=== PATIENT | male | born 1950 | race Caucasian/White ===

== ENCOUNTER 2021-04-05 16:27 | Inpatient (IN) ==
[2021-04-05] MEDS ORDERED: Perflutren Lipid Microsphere 1.3 ML in 0.9 % Sodium Chloride 8.7 ML IVP PRN (19:36)
[2021-04-05] MEDS ORDERED: Ondansetron 4 MG/2 ML VIAL IVP PRN (19:43)
[2021-04-05] MEDS ORDERED: Naloxone 0.4 MG/ML INJ IVP PRN (19:43)
[2021-04-05 21:15] LABS: VBG HCO3 40 mEq/L (21-27); VBG PCO2 83 mmHg (41-51); VBG PO2 148 mmHg (25-50)
[2021-04-05 21:15] LABS: Calcium 9.4 mg/dL (8.6-10.3); Potassium 4.3 mEq/L (3.5-5.1); Troponin I 0.09 ng/mL (< 0.04)
[2021-04-05] MEDS ORDERED: Ipratropium/Albuterol Neb 3 ML IH PRN (21:37)
[2021-04-05] MEDS ORDERED: *HR* LORazepam 2 MG/ML VIAL IVP PRN (21:38)
[2021-04-05] MEDS ORDERED: Vancomycin 1,500 MG/265 ML IV.SOLN IVPB ONE (23:00)
[2021-04-06 07:10] LABS: Hematocrit 41.7 % (37.5-50.1); Hemoglobin 13.2 g/dL (12.9-16.9); Mean Corpuscular HGB Conc 31.7 g/dL (31.6-35.5); Mean Corpuscular Volume 94.8 fL (83.0-100.0); Mean Platelet Volume 8.8 fL (9.4-12.4); Platelet Count 254 K/mcL (140-400); Red Cell Distribution Width 14.5 % (11.5-14.5); White Blood Count 6.2 K/mcL (4.3-11.1)
[2021-04-06 07:21] LABS: VBG HCO3 41 mEq/L (21-27); VBG PCO2 86 mmHg (41-51); VBG PH 7.28 pH Units (7.32-7.42); VBG PO2 35 mmHg (25-50)
[2021-04-06] MEDS ORDERED: Furosemide 40 MG/4 ML VIAL IVP SCH (09:00)
[2021-04-06 09:16] LABS: Alanine Aminotransferase 17 Units/L (7-52); Albumin 3.3 g/dL (3.5-5.7); Albumin/Globulin Ratio 1.2 (1.1-2.2); Alkaline Phosphatase 33 Units/L (34-104); Aspartate Amino Transferase 25 Units/L (13-39); BUN/Creatinine Ratio 19 (6-26); Bilirubin,Total 0.5 mg/dL (0.3-1.0); Blood Urea Nitrogen 23 mg/dL (8-23); Calcium 9.4 mg/dL (8.6-10.3); Carbon Dioxide 36 mEq/L (23-29); Chloride 88 mEq/L (98-107); Chol/HDL Ratio 2.1 (0-4.9); Cholesterol 150 mg/dL (< 200); Globulin 2.8 g/dL (2.4-3.5); Glucose 109 mg/dL (70-105); HDL Cholesterol 72 mg/dL (40-59); LDL Cholesterol,Calculated 66 mg/dL (< 100); Osmolality,Calculated 276 (280-300); Sodium 131 mEq/L (136-145); Total Protein 6.1 g/dL (6.4-8.9); Triglycerides 61 mg/dL (< 150); Troponin I 0.08 ng/mL (< 0.04); eGFR For African Americans > 60 (> 60); eGFR For Non-African Americans 59 (> 60)
[2021-04-06] MEDS: Aspirin 81 MG TAB.CHEW PO SCH (10:09)
[2021-04-06 11:26] LABS: VBG HCO3 37 mEq/L (21-27); VBG PCO2 71 mmHg (41-51); VBG PH 7.33 pH Units (7.32-7.42); VBG PO2 32 mmHg (25-50)
[2021-04-06 11:34] LABS: INR 1.2; Prothrombin Time 13.8 Seconds (9.4-12.1)
[2021-04-06] MEDS ORDERED: methylPREDNISolone 125 MG/2 ML VIAL IVP ONE (12:15)
[2021-04-06 13:28] LABS: Adenovirus Not Detected (Not Detect); Bordetella Pertussis Not Detected (Not Detect); Chlamydophila pneumoniae Not Detected (Not Detect); Coronavirus 229E Not Detected (Not Detect); Coronavirus HKU1 Not Detected (Not Detect); Coronavirus NL63 Not Detected (Not Detect); Coronavirus OC43 Not Detected (Not Detect); Human Metapneumovirus Not Detected (Not Detect); Human Rhinovirus/Enterovirus Not Detected (Not Detect); Influenza A Subtype 2009 H1 Not Detected (Not Detect); Influenza B Not Detected (Not Detect); Mycoplasma pneumoniae Not Detected (Not Detect); Parainfluenza Virus 1 Not Detected (Not Detect); Parainfluenza Virus 2 Not Detected (Not Detect); Parainfluenza Virus 3 Not Detected (Not Detect); Parainfluenza Virus 4 Not Detected (Not Detect); Respiratory Syncytial Virus Not Detected (Not Detect); SARS-CoV-2 Not Detected (Not Detect)
[2021-04-06] MEDS: Ipratropium/Albuterol Neb 3 ML IH SCH ×4 (15:24→23:41)
[2021-04-06 17:48] LABS: Lactate Dehydrogenase 165 Units/L (140-271); Total Protein 6.4 g/dL (6.4-8.9)
[2021-04-06 17:57] LABS: VBG HCO3 39 mEq/L (21-27); VBG PCO2 84 mmHg (41-51); VBG PH 7.28 pH Units (7.32-7.42); VBG PO2 58 mmHg (25-50)
[2021-04-06 18:22] LABS: RBC,Pleural Fluid 64000 RBC/mcL
[2021-04-06 18:44] LABS: Appearance of Pleural Fl Cloudy (Clear)
[2021-04-06 19:37] LABS: ABG Base Excess 9 mEq/L (-2 to 3); ABG HCO3 37 mEq/L (21-27); ABG Oxygen Saturation 79 % (95-98); ABG PCO2 66 mmHg (35-45); ABG PH 7.36 pH Units (7.32-7.45); ABG PO2 47 mmHg (85-104); ABG TCO2 39 mEq/L (20-26)
[2021-04-06] MEDS: MethylPREDNISolone 40 MG/ML VIAL IVP SCH (19:39)
[2021-04-06 19:43] LABS: Glucose,Pleural Fluid 146 mg/dL (No Ref Range); LDH,Pleural Fluid 61 Units/L (No Ref Range); Total Protein,Pleural Fluid < 2.0 g/dL
[2021-04-06] MEDS ORDERED: Vancomycin 1,250 MG/262.5 ML IV.SOLN IVPB SCH (22:00)
[2021-04-06] MEDS: Vancomycin 1,250 MG/262.5 ML IV.SOLN IVPB SCH (22:30)
[2021-04-06 23:48] LABS: Blood Gas Pressure Support 6 cm H2O; VBG HCO3 41 mEq/L (21-27); VBG PCO2 90 mmHg (41-51); VBG PH 7.26 pH Units (7.32-7.42); VBG PO2 109 mmHg (25-50)
[2021-04-07 02:16] LABS: ABG Base Excess 8 mEq/L (-2 to 3); ABG HCO3 37 mEq/L (21-27); ABG Oxygen Saturation 92 % (95-98); ABG PCO2 76 mmHg (35-45); ABG PO2 74 mmHg (85-104); ABG TCO2 39 mEq/L (20-26); Blood Gas VT 500 cc
[2021-04-07 02:33] LABS: Hematocrit 36.7 % (37.5-50.1); Lymphocytes # 0.1 K/mcL (0.6-4.6); Mean Corpuscular HGB Conc 32.7 g/dL (31.6-35.5); Mean Corpuscular Hemoglobin 30.8 pg (28.0-33.3); Mean Corpuscular Volume 94.1 fL (83.0-100.0); Mean Platelet Volume 9.4 fL (9.4-12.4); Platelet Count 231 K/mcL (140-400); Red Cell Distribution Width 14.3 % (11.5-14.5); White Blood Count 2.8 K/mcL (4.3-11.1)
[2021-04-07 02:52] LABS: Alanine Aminotransferase 14 Units/L (7-52); Albumin 3.1 g/dL (3.5-5.7); Albumin/Globulin Ratio 1.1 (1.1-2.2); Alkaline Phosphatase 27 Units/L (34-104); Aspartate Amino Transferase 21 Units/L (13-39); BUN/Creatinine Ratio 22 (6-26); Bilirubin,Total 0.4 mg/dL (0.3-1.0); Blood Urea Nitrogen 24 mg/dL (8-23); Carbon Dioxide 38 mEq/L (23-29); Chloride 88 mEq/L (98-107); Globulin 2.7 g/dL (2.4-3.5); Glucose 164 mg/dL (70-105); Osmolality,Calculated 278 (280-300); Potassium 3.8 mEq/L (3.5-5.1); Sodium 130 mEq/L (136-145); Total Protein 5.8 g/dL (6.4-8.9); eGFR For African Americans > 60 (> 60); eGFR For Non-African Americans > 60 (> 60)
[2021-04-07 03:02] LABS: Neutrophils # 2.6 K/mcL (1.6-8.9)
[2021-04-07 03:03] LABS: Platelet Estimate Normal (Normal); Toxic Granulation Present (Not Present)
[2021-04-07] MEDS: MethylPREDNISolone 40 MG/ML VIAL IVP SCH ×3 (03:13→21:02)
[2021-04-07] MEDS: Ipratropium/Albuterol Neb 3 ML IH SCH ×6 (03:26→23:23)
[2021-04-07] MEDS: Aspirin 81 MG TAB.CHEW PO SCH (08:49)
[2021-04-07] MEDS: Bumetanide 1 MG/4 ML VIAL IVP SCH ×2 (08:49→18:11)
[2021-04-07] MEDS ORDERED: Vancomycin 1,500 MG/265 ML IV.SOLN IVPB SCH (09:00)
[2021-04-07 09:23] LABS: Blood Gas VT 500 cc; Mixed Venous Blood pCO2 78 mmHg (44-46); Mixed Venous Blood pH 7.32 pH Units (7.34-7.36); Mixed Venous Blood pO2 37 mmHg (35-45)
[2021-04-07 13:10] LABS: ABG Base Excess 12 mEq/L (-2 to 3); ABG HCO3 40 mEq/L (21-27); ABG Oxygen Saturation 93 % (95-98); ABG PCO2 66 mmHg (35-45); ABG PH 7.39 pH Units (7.32-7.45); ABG PO2 71 mmHg (85-104); ABG TCO2 42 mEq/L (20-26); Blood Gas Pressure Support 10 cm H2O
[2021-04-07 15:14] LABS: Hematocrit 36.8 % (37.5-50.1); Hemoglobin 11.8 g/dL (12.9-16.9); Mean Corpuscular HGB Conc 32.1 g/dL (31.6-35.5); Mean Corpuscular Hemoglobin 30.2 pg (28.0-33.3); Mean Corpuscular Volume 94.1 fL (83.0-100.0); Mean Platelet Volume 9.3 fL (9.4-12.4); Platelet Count 220 K/mcL (140-400); Red Blood Count 3.91 M/mcL (4.19-5.50); Red Cell Distribution Width 14.4 % (11.5-14.5)
[2021-04-07 15:17] LABS: White Blood Count 5.2 K/mcL (4.3-11.1)
[2021-04-07] MEDS ORDERED: *HR* Heparin 5,000 UNIT/ML VIAL IVP ONE (16:56)
[2021-04-07] MEDS ORDERED: *HR* Heparin 5,000 UNIT/ML VIAL IVP PRN ×2 (16:56)
[2021-04-07] MEDS ORDERED: carvediloL 6.25 MG TABLET PO SCH (17:00)
[2021-04-07] MEDS: Heparin 25,000UNIT/250ML 1/2NS 25,000 UNIT/250 ML IV.SOLN IVC SCH (18:10)
[2021-04-07 21:16] LABS: Hematocrit 35.5 % (37.5-50.1); Hemoglobin 11.5 g/dL (12.9-16.9); Mean Corpuscular HGB Conc 32.4 g/dL (31.6-35.5); Mean Corpuscular Hemoglobin 30.2 pg (28.0-33.3); Mean Corpuscular Volume 93.2 fL (83.0-100.0); Platelet Count 233 K/mcL (140-400); Red Blood Count 3.81 M/mcL (4.19-5.50); Red Cell Distribution Width 14.3 % (11.5-14.5); White Blood Count 7.7 K/mcL (4.3-11.1)
[2021-04-07 21:23] LABS: Heparin anti-factor XA UFH 0.31 IU/mL (0.30-0.70)
[2021-04-07 21:24] LABS: INR 1.2; Prothrombin Time 13.8 Seconds (9.4-12.1)
[2021-04-07] MEDS: Vancomycin 1,250 MG/262.5 ML IV.SOLN IVPB SCH (22:49)
[2021-04-08 01:38] LABS: Hematocrit 33.5 % (37.5-50.1); Hemoglobin 10.6 g/dL (12.9-16.9); Immature Granulocytes % 0.7 % (0-4); Lymphocytes # 0.2 K/mcL (0.6-4.6); Lymphocytes % 2.4 %; Mean Corpuscular HGB Conc 31.6 g/dL (31.6-35.5); Mean Corpuscular Hemoglobin 29.5 pg (28.0-33.3); Mean Corpuscular Volume 93.3 fL (83.0-100.0); Mean Platelet Volume 9.3 fL (9.4-12.4); Monocytes # 0.2 K/mcL (0.0-1.3); Monocytes % 2.8 %; Neutrophils # 6.4 K/mcL (1.6-8.9); Platelet Count 219 K/mcL (140-400); Red Blood Count 3.59 M/mcL (4.19-5.50); Red Cell Distribution Width 14.3 % (11.5-14.5); Segmented Neutrophils % 94.1 %; White Blood Count 6.8 K/mcL (4.3-11.1)
[2021-04-08 01:58] LABS: Alanine Aminotransferase 17 Units/L (7-52); Albumin/Globulin Ratio 1.3 (1.1-2.2); Alkaline Phosphatase 23 Units/L (34-104); Aspartate Amino Transferase 23 Units/L (13-39); Bilirubin,Total 0.3 mg/dL (0.3-1.0); Blood Urea Nitrogen 30 mg/dL (8-23); Calcium 8.8 mg/dL (8.6-10.3); Carbon Dioxide 39 mEq/L (23-29); Chloride 87 mEq/L (98-107); Globulin 2.4 g/dL (2.4-3.5); Glucose 191 mg/dL (70-105); Osmolality,Calculated 281 (280-300); Potassium 3.9 mEq/L (3.5-5.1); Sodium 130 mEq/L (136-145); Total Protein 5.4 g/dL (6.4-8.9)
[2021-04-08 02:16] LABS: BUN/Creatinine Ratio 24 (6-26); eGFR For African Americans > 60 (> 60); eGFR For Non-African Americans 57 (> 60)
[2021-04-08] MEDS: Ipratropium/Albuterol Neb 3 ML IH SCH ×5 (04:03→20:32)
[2021-04-08] MEDS: MethylPREDNISolone 40 MG/ML VIAL IVP SCH ×3 (04:32→19:46)
[2021-04-08] MEDS ORDERED: Heparin 1,000 UNITS/500 mL 0 ML ONE (09:35)
[2021-04-08] MEDS ORDERED: ISOVUE-370 200 ML INFUS..BTL ONE (09:35)
[2021-04-08] MEDS ORDERED: Nitroglycerin 1,000 MCG/5 ML VIAL IV ONE (09:35)
[2021-04-08] MEDS ORDERED: *HR* Heparin 10,000 UNIT/10 ML VIAL ONE (09:35)
[2021-04-08] MEDS: Bumetanide 1 MG/4 ML VIAL IVP SCH ×2 (10:43→18:21)
[2021-04-08] MEDS: Metoprolol XL (24 HR) Succ 25 MG TAB.ER.24H PO SCH (10:43)
[2021-04-08] MEDS: Aspirin 81 MG TAB.CHEW PO SCH (10:43)
[2021-04-08] MEDS: Heparin 25,000UNIT/250ML 1/2NS 25,000 UNIT/250 ML IV.SOLN IVC SCH (18:22)
[2021-04-08] MEDS: *HR* HYDROcodone/Acet 5/325 mg TABLET PO PRN (19:54)
[2021-04-09] MEDS: Ipratropium/Albuterol Neb 3 ML IH SCH ×6 (00:17→20:38)
[2021-04-09] MEDS: Vancomycin 1,250 MG/262.5 ML IV.SOLN IVPB SCH (02:04)
[2021-04-09] MEDS: MethylPREDNISolone 40 MG/ML VIAL IVP SCH ×3 (04:53→19:34)
[2021-04-09] MEDS: Bumetanide 1 MG/4 ML VIAL IVP SCH ×2 (07:44→16:38)
[2021-04-09] MEDS: Aspirin 81 MG TAB.CHEW PO SCH (07:45)
[2021-04-09] MEDS: Metoprolol XL (24 HR) Succ 25 MG TAB.ER.24H PO SCH (07:45)
[2021-04-09 09:35] LABS: Hematocrit 38.3 % (37.5-50.1); Immature Granulocytes % 0.6 % (0-4); Lymphocytes # 0.3 K/mcL (0.6-4.6); Lymphocytes % 3.8 %; Mean Corpuscular HGB Conc 31.3 g/dL (31.6-35.5); Mean Corpuscular Hemoglobin 29.5 pg (28.0-33.3); Mean Corpuscular Volume 94.1 fL (83.0-100.0); Mean Platelet Volume 9.9 fL (9.4-12.4); Monocytes # 0.2 K/mcL (0.0-1.3); Monocytes % 3.3 %; Neutrophils # 6.1 K/mcL (1.6-8.9); Platelet Count 218 K/mcL (140-400); Red Blood Count 4.07 M/mcL (4.19-5.50); Red Cell Distribution Width 14.4 % (11.5-14.5); Segmented Neutrophils % 92.3 %; White Blood Count 6.6 K/mcL (4.3-11.1)
[2021-04-09 09:59] LABS: Alanine Aminotransferase 29 Units/L (7-52); Albumin 3.4 g/dL (3.5-5.7); Albumin/Globulin Ratio 1.4 (1.1-2.2); Alkaline Phosphatase 21 Units/L (34-104); Aspartate Amino Transferase 48 Units/L (13-39); BUN/Creatinine Ratio 27 (6-26); Bilirubin,Total 0.4 mg/dL (0.3-1.0); Blood Urea Nitrogen 35 mg/dL (8-23); Calcium 9.3 mg/dL (8.6-10.3); Carbon Dioxide 39 mEq/L (23-29); Chloride 85 mEq/L (98-107); Globulin 2.5 g/dL (2.4-3.5); Glucose 135 mg/dL (70-105); Osmolality,Calculated 280 (280-300); Potassium 5.1 mEq/L (3.5-5.1); Sodium 130 mEq/L (136-145); Total Protein 5.9 g/dL (6.4-8.9); eGFR For African Americans > 60 (> 60); eGFR For Non-African Americans 54 (> 60)
[2021-04-09] MEDS: *HR* Heparin 5,000 UNIT/ML VIAL SQ SCH (16:37)
[2021-04-09] MEDS: *HR* HYDROcodone/Acet 5/325 mg TABLET PO PRN (19:44)
[2021-04-10] MEDS: Ipratropium/Albuterol Neb 3 ML IH SCH ×7 (00:07→23:47)
[2021-04-10] MEDS: MethylPREDNISolone 40 MG/ML VIAL IVP SCH ×2 (04:13→12:00)
[2021-04-10] MEDS: *HR* Heparin 5,000 UNIT/ML VIAL SQ SCH ×2 (04:14→17:07)
[2021-04-10] MEDS: *HR* HYDROcodone/Acet 5/325 mg TABLET PO PRN ×4 (04:14→23:58)
[2021-04-10] MEDS: Aspirin 81 MG TAB.CHEW PO SCH (08:12)
[2021-04-10] MEDS: Bumetanide 1 MG/4 ML VIAL IVP SCH ×2 (08:12→17:07)
[2021-04-10] MEDS: Metoprolol XL (24 HR) Succ 25 MG TAB.ER.24H PO SCH (08:12)
[2021-04-10] MEDS: Thiamine (B-1) 100 MG TABLET PO SCH (09:04)
[2021-04-11] MEDS: Ipratropium/Albuterol Neb 3 ML IH SCH ×6 (02:25→23:00)
[2021-04-11] MEDS: *HR* Heparin 5,000 UNIT/ML VIAL SQ SCH ×2 (05:47→17:50)
[2021-04-11] MEDS: Bumetanide 1 MG/4 ML VIAL IVP SCH ×2 (08:37→17:50)
[2021-04-11] MEDS: Metoprolol XL (24 HR) Succ 25 MG TAB.ER.24H PO SCH (08:37)
[2021-04-11] MEDS: Thiamine (B-1) 100 MG TABLET PO SCH (08:37)
[2021-04-11] MEDS: Aspirin 81 MG TAB.CHEW PO SCH (08:37)
[2021-04-11] MEDS: predniSONE 20 MG TABLET PO SCH (08:37)
[2021-04-11] MEDS: *HR* HYDROcodone/Acet 5/325 mg TABLET PO PRN ×2 (09:29→19:57)
[2021-04-11] MEDS ORDERED: Bumetanide 1 MG/4 ML VIAL IVP SCH (12:00)
[2021-04-11 13:40] LABS: BUN/Creatinine Ratio 33 (6-26); Blood Urea Nitrogen 41 mg/dL (8-23); Carbon Dioxide 40 mEq/L (23-29); Chloride 80 mEq/L (98-107); Glucose 164 mg/dL (70-105); Osmolality,Calculated 272 (280-300); Potassium 4.6 mEq/L (3.5-5.1); Sodium 124 mEq/L (136-145); eGFR For African Americans > 60 (> 60); eGFR For Non-African Americans 58 (> 60)
[2021-04-12] MEDS: *HR* HYDROcodone/Acet 5/325 mg TABLET PO PRN ×3 (02:05→19:49)
[2021-04-12] MEDS: Ipratropium/Albuterol Neb 3 ML IH SCH ×5 (03:40→20:12)
[2021-04-12] MEDS: *HR* Heparin 5,000 UNIT/ML VIAL SQ SCH ×2 (05:05→18:33)
[2021-04-12] MEDS: Bumetanide 1 MG/4 ML VIAL IVP SCH ×2 (07:50→18:33)
[2021-04-12] MEDS: predniSONE 20 MG TABLET PO SCH (07:50)
[2021-04-12] MEDS: Metoprolol XL (24 HR) Succ 25 MG TAB.ER.24H PO SCH (07:52)
[2021-04-12] MEDS: Thiamine (B-1) 100 MG TABLET PO SCH (07:52)
[2021-04-12] MEDS: Aspirin 81 MG TAB.CHEW PO SCH (07:52)
[2021-04-12] MEDS: Spironolactone 25 MG TABLET PO SCH (09:35)
[2021-04-12 11:03] LABS: Estimated Average Glucose 117 mg/dl; Hemoglobin A1C 5.7 %
[2021-04-13] MEDS: Ipratropium/Albuterol Neb 3 ML IH SCH ×8 (00:04→20:38)
[2021-04-13] MEDS: *HR* HYDROcodone/Acet 5/325 mg TABLET PO PRN ×2 (01:58→19:48)
[2021-04-13] MEDS: *HR* Heparin 5,000 UNIT/ML VIAL SQ SCH ×2 (05:26→17:19)
[2021-04-13 07:51] LABS: BUN/Creatinine Ratio 36 (6-26); Blood Urea Nitrogen 38 mg/dL (8-23); Calcium 9.5 mg/dL (8.6-10.3); Carbon Dioxide > 40 mEq/L (23-29); Chloride 79 mEq/L (98-107); Glucose 79 mg/dL (70-105); Osmolality,Calculated 276 (280-300); Sodium 129 mEq/L (136-145); eGFR For African Americans > 60 (> 60); eGFR For Non-African Americans > 60 (> 60)
[2021-04-13] MEDS: Bumetanide 1 MG/4 ML VIAL IVP SCH ×2 (08:43→17:19)
[2021-04-13] MEDS: Metoprolol XL (24 HR) Succ 25 MG TAB.ER.24H PO SCH (08:44)
[2021-04-13] MEDS: Thiamine (B-1) 100 MG TABLET PO SCH (08:44)
[2021-04-13] MEDS: predniSONE 20 MG TABLET PO SCH (08:44)
[2021-04-13] MEDS: Spironolactone 25 MG TABLET PO SCH (08:44)
[2021-04-13] MEDS: Aspirin 81 MG TAB.CHEW PO SCH (08:44)
[2021-04-14] MEDS: Ipratropium/Albuterol Neb 3 ML IH SCH ×6 (00:05→19:35)
[2021-04-14 01:41] LABS: Eosinophils # 0.5 K/mcL (0.0-0.6); Eosinophils % 6.8 %; Hematocrit 32.8 % (37.5-50.1); Hemoglobin 10.7 g/dL (12.9-16.9); Immature Granulocytes % 0.4 % (0-4); Lymphocytes # 0.6 K/mcL (0.6-4.6); Lymphocytes % 7.5 %; Mean Corpuscular HGB Conc 32.6 g/dL (31.6-35.5); Mean Corpuscular Hemoglobin 30.1 pg (28.0-33.3); Mean Corpuscular Volume 92.1 fL (83.0-100.0); Mean Platelet Volume 10.5 fL (9.4-12.4); Monocytes # 0.5 K/mcL (0.0-1.3); Monocytes % 6.1 %; Platelet Count 177 K/mcL (140-400); Red Blood Count 3.56 M/mcL (4.19-5.50); Red Cell Distribution Width 14.2 % (11.5-14.5); Segmented Neutrophils % 79.2 %; White Blood Count 7.5 K/mcL (4.3-11.1)
[2021-04-14 01:57] LABS: BUN/Creatinine Ratio 37 (6-26); Blood Urea Nitrogen 40 mg/dL (8-23); Calcium 8.7 mg/dL (8.6-10.3); Carbon Dioxide 44 mEq/L (23-29); Chloride 83 mEq/L (98-107); Glucose 130 mg/dL (70-105); Osmolality,Calculated 282 (280-300); Potassium 4.1 mEq/L (3.5-5.1); Sodium 130 mEq/L (136-145); eGFR For African Americans > 60 (> 60); eGFR For Non-African Americans > 60 (> 60)
[2021-04-14] MEDS ORDERED: *HR* Metoprolol 5 MG/5 ML VIAL IVP ONE (04:59)
[2021-04-14] MEDS: *HR* Heparin 5,000 UNIT/ML VIAL SQ SCH (05:10)
[2021-04-14] MEDS: Bumetanide 1 MG/4 ML VIAL IVP SCH ×2 (08:17→17:32)
[2021-04-14] MEDS: Aspirin 81 MG TAB.CHEW PO SCH (08:17)
[2021-04-14] MEDS: Spironolactone 25 MG TABLET PO SCH (08:17)
[2021-04-14] MEDS: predniSONE 20 MG TABLET PO SCH (08:17)
[2021-04-14] MEDS: Metoprolol XL (24 HR) Succ 25 MG TAB.ER.24H PO SCH (08:17)
[2021-04-14] MEDS: Thiamine (B-1) 100 MG TABLET PO SCH (08:17)
[2021-04-14] MEDS: *HR* HYDROcodone/Acet 5/325 mg TABLET PO PRN ×2 (08:19→20:57)
[2021-04-14] MEDS ORDERED: *HR* Heparin 5,000 UNIT/ML VIAL IVP PRN ×2 (10:44)
[2021-04-14] MEDS ORDERED: *HR* Heparin 5,000 UNIT/ML VIAL IVP ONE (10:44)
[2021-04-14 12:20] LABS: Hematocrit 38.1 % (37.5-50.1); Hemoglobin 12.1 g/dL (12.9-16.9); Mean Corpuscular HGB Conc 31.8 g/dL (31.6-35.5); Mean Corpuscular Volume 94.5 fL (83.0-100.0); Mean Platelet Volume 10.6 fL (9.4-12.4); Platelet Count 198 K/mcL (140-400); Red Blood Count 4.03 M/mcL (4.19-5.50); Red Cell Distribution Width 14.5 % (11.5-14.5); White Blood Count 9.9 K/mcL (4.3-11.1)
[2021-04-14] MEDS: Heparin 25,000UNIT/250ML 1/2NS 25,000 UNIT/250 ML IV.SOLN IVC SCH (12:50)
[2021-04-14] MEDS: *HR* Digoxin 0.5 MG/2 ML AMPUL IVP SCH ×3 (12:50→23:39)
[2021-04-14 12:54] LABS: Heparin anti-factor XA UFH < 0.04 IU/mL (0.30-0.70)
[2021-04-14 12:55] LABS: INR 1.1; Prothrombin Time 12.5 Seconds (9.4-12.1)
[2021-04-14] MEDS: Albumin 25% 25gram/100mL 25 GM/100 ML IV.SOLN IVPB SCH ×2 (15:51→23:42)
[2021-04-15] MEDS: Ipratropium/Albuterol Neb 3 ML IH SCH (00:05)
[2021-04-15] MEDS: Levalbuterol Neb 1.25 MG/3 ML IH SCH ×4 (03:30→20:13)
[2021-04-15] MEDS: *HR* Digoxin 0.5 MG/2 ML AMPUL IVP SCH (05:52)
[2021-04-15] MEDS: *HR* HYDROcodone/Acet 5/325 mg TABLET PO PRN ×2 (05:54→20:01)
[2021-04-15] MEDS: Metoprolol XL (24 HR) Succ 25 MG TAB.ER.24H PO SCH ×2 (09:01→19:57)
[2021-04-15] MEDS: Aspirin 81 MG TAB.CHEW PO SCH (09:01)
[2021-04-15] MEDS: Spironolactone 25 MG TABLET PO SCH (09:01)
[2021-04-15] MEDS: predniSONE 20 MG TABLET PO SCH (09:01)
[2021-04-15] MEDS: Thiamine (B-1) 100 MG TABLET PO SCH (09:01)
[2021-04-15] MEDS: Bumetanide 1 MG/4 ML VIAL IVP SCH ×2 (09:02→17:26)
[2021-04-15] MEDS: Albumin 25% 25gram/100mL 25 GM/100 ML IV.SOLN IVPB SCH (09:02)
[2021-04-15] MEDS: Heparin 25,000UNIT/250ML 1/2NS 25,000 UNIT/250 ML IV.SOLN IVC SCH (11:38)
[2021-04-15] MEDS: *HR* Digoxin 0.125 MG TABLET PO SCH (12:26)
[2021-04-16] MEDS: Levalbuterol Neb 1.25 MG/3 ML IH SCH ×2 (03:37→07:32)
[2021-04-16 06:19] LABS: Eosinophils # 0.5 K/mcL (0.0-0.6); Eosinophils % 7.7 %; Hematocrit 31.7 % (37.5-50.1); Hemoglobin 10.1 g/dL (12.9-16.9); Immature Granulocytes % 0.6 % (0-4); Lymphocytes # 0.7 K/mcL (0.6-4.6); Lymphocytes % 10.4 %; Mean Corpuscular HGB Conc 31.9 g/dL (31.6-35.5); Mean Corpuscular Hemoglobin 29.6 pg (28.0-33.3); Mean Platelet Volume 10.6 fL (9.4-12.4); Monocytes # 0.6 K/mcL (0.0-1.3); Monocytes % 8.5 %; Neutrophils # 4.9 K/mcL (1.6-8.9); Platelet Count 205 K/mcL (140-400); Red Blood Count 3.41 M/mcL (4.19-5.50); Red Cell Distribution Width 14.4 % (11.5-14.5); Segmented Neutrophils % 72.8 %; White Blood Count 6.7 K/mcL (4.3-11.1)
[2021-04-16 06:42] LABS: BUN/Creatinine Ratio 32 (6-26); Blood Urea Nitrogen 39 mg/dL (8-23); Calcium 9.4 mg/dL (8.6-10.3); Carbon Dioxide 40 mEq/L (23-29); Chloride 87 mEq/L (98-107); Glucose 112 mg/dL (70-105); Osmolality,Calculated 282 (280-300); Potassium 4.6 mEq/L (3.5-5.1); Sodium 131 mEq/L (136-145); eGFR For African Americans > 60 (> 60); eGFR For Non-African Americans 58 (> 60)
[2021-04-16 07:01] LABS: Triiodothyronine (T3) Free 2.32 pg/mL (2.50-3.90)
[2021-04-16] MEDS: Thiamine (B-1) 100 MG TABLET PO SCH (09:09)
[2021-04-16] MEDS: *HR* HYDROcodone/Acet 5/325 mg TABLET PO PRN ×3 (09:10→22:05)
[2021-04-16] MEDS: Bumetanide 1 MG/4 ML VIAL IVP SCH ×2 (09:10→15:53)
[2021-04-16] MEDS: Metoprolol XL (24 HR) Succ 25 MG TAB.ER.24H PO SCH ×2 (09:10→19:47)
[2021-04-16] MEDS: Aspirin 81 MG TAB.CHEW PO SCH (09:10)
[2021-04-16] MEDS: *HR* Digoxin 0.125 MG TABLET PO SCH (09:10)
[2021-04-16] MEDS: Spironolactone 25 MG TABLET PO SCH (09:10)
[2021-04-16] MEDS: Heparin 25,000UNIT/250ML 1/2NS 25,000 UNIT/250 ML IV.SOLN IVC SCH (09:57)
[2021-04-16] MEDS ORDERED: Levalbuterol Neb 1.25 MG/3 ML IH PRN (15:28)
[2021-04-17] MEDS: Levothyroxine 25 MCG TABLET PO SCH (05:23)
[2021-04-17] MEDS: *HR* HYDROcodone/Acet 5/325 mg TABLET PO PRN ×2 (08:19→17:10)
[2021-04-17] MEDS: *HR* Digoxin 0.125 MG TABLET PO SCH (08:19)
[2021-04-17] MEDS: Aspirin 81 MG TAB.CHEW PO SCH (08:19)
[2021-04-17] MEDS: Spironolactone 25 MG TABLET PO SCH (08:19)
[2021-04-17] MEDS: Thiamine (B-1) 100 MG TABLET PO SCH (08:19)
[2021-04-17] MEDS: Bumetanide 1 MG/4 ML VIAL IVP SCH ×3 (08:20→17:58)
[2021-04-17] MEDS: Metoprolol XL (24 HR) Succ 25 MG TAB.ER.24H PO SCH ×2 (08:20→21:13)
[2021-04-17] MEDS: Heparin 25,000UNIT/250ML 1/2NS 25,000 UNIT/250 ML IV.SOLN IVC SCH (09:34)
[2021-04-17] MEDS ORDERED: Nitroglycerin 1,000 MCG/5 ML VIAL IV ONE (14:10)
[2021-04-17] MEDS ORDERED: 0.9 % Sodium Chloride 1,000 ML ONE ×2 (14:10→14:23)
[2021-04-17] MEDS ORDERED: *HR* Heparin 10,000 UNIT/10 ML VIAL ONE ×2 (14:10→15:02)
[2021-04-17] MEDS ORDERED: ISOVUE-370 200 ML INFUS..BTL ONE ×2 (14:10→15:51)
[2021-04-17] MEDS ORDERED: Heparin 1,000 UNITS/500 mL 500 ML ONE (14:10)
[2021-04-17] MEDS ORDERED: *HR* FentaNYL (PF) 100 MCG/2 ML VIAL ONE (14:22)
[2021-04-17] MEDS ORDERED: *HR* Midazolam HCl 2 MG/2 ML VIAL ONE (14:22)
[2021-04-17] MEDS ORDERED: Tirofiban 12.5 MG/250ML 12.5 MG/250 ML BAG ONE (15:53)
[2021-04-17] MEDS ORDERED: Acetaminophen 325 MG TABLET PO PRN (16:29)
[2021-04-18] MEDS: *HR* HYDROcodone/Acet 5/325 mg TABLET PO PRN ×2 (03:46→18:48)
[2021-04-18] MEDS: Levothyroxine 25 MCG TABLET PO SCH (06:04)
[2021-04-18 06:14] LABS: Hematocrit 27.5 % (37.5-50.1)
[2021-04-18 06:15] LABS: Eosinophils # 0.6 K/mcL (0.0-0.6); Eosinophils % 10.2 %; Hematocrit 28.1 % (37.5-50.1); Hemoglobin 9.1 g/dL (12.9-16.9); Immature Granulocytes % 0.5 % (0-4); Lymphocytes # 0.6 K/mcL (0.6-4.6); Lymphocytes % 9.7 %; Mean Corpuscular HGB Conc 32.4 g/dL (31.6-35.5); Mean Corpuscular Volume 92.7 fL (83.0-100.0); Mean Platelet Volume 10.6 fL (9.4-12.4); Monocytes # 0.3 K/mcL (0.0-1.3); Monocytes % 5.2 %; Neutrophils # 4.3 K/mcL (1.6-8.9); Platelet Count 220 K/mcL (140-400); Red Blood Count 3.03 M/mcL (4.19-5.50); Red Cell Distribution Width 14.8 % (11.5-14.5); Segmented Neutrophils % 74.4 %; White Blood Count 5.8 K/mcL (4.3-11.1)
[2021-04-18 07:09] LABS: BUN/Creatinine Ratio 29 (6-26); Blood Urea Nitrogen 35 mg/dL (8-23); Calcium 9.2 mg/dL (8.6-10.3); Carbon Dioxide 35 mEq/L (23-29); Chloride 87 mEq/L (98-107); Glucose 147 mg/dL (70-105); Magnesium 1.6 mg/dL (1.6-2.6); Osmolality,Calculated 279 (280-300); Potassium 4.3 mEq/L (3.5-5.1); Sodium 129 mEq/L (136-145); eGFR For African Americans > 60 (> 60); eGFR For Non-African Americans 59 (> 60)
[2021-04-18] MEDS: Thiamine (B-1) 100 MG TABLET PO SCH (08:47)
[2021-04-18] MEDS: Spironolactone 25 MG TABLET PO SCH (08:47)
[2021-04-18] MEDS: Metoprolol XL (24 HR) Succ 25 MG TAB.ER.24H PO SCH ×2 (08:47→19:53)
[2021-04-18] MEDS: *HR* Digoxin 0.125 MG TABLET PO SCH (08:47)
[2021-04-18] MEDS: Apixaban 5 MG TABLET PO SCH ×2 (08:47→19:53)
[2021-04-18] MEDS: Bumetanide 1 MG/4 ML VIAL IVP SCH ×2 (09:14→18:47)
[2021-04-18 16:47] LABS: Basophils % 0.2 %; Eosinophils # 0.5 K/mcL (0.0-0.6); Eosinophils % 9.9 %; Hematocrit 28.6 % (37.5-50.1); Hemoglobin 9.3 g/dL (12.9-16.9); Immature Granulocytes % 0.4 % (0-4); Lymphocytes # 0.4 K/mcL (0.6-4.6); Lymphocytes % 8.3 %; Mean Corpuscular HGB Conc 32.5 g/dL (31.6-35.5); Mean Corpuscular Hemoglobin 30.7 pg (28.0-33.3); Mean Corpuscular Volume 94.4 fL (83.0-100.0); Mean Platelet Volume 10.2 fL (9.4-12.4); Monocytes # 0.3 K/mcL (0.0-1.3); Monocytes % 6.2 %; Platelet Count 219 K/mcL (140-400); Red Blood Count 3.03 M/mcL (4.19-5.50); Red Cell Distribution Width 14.7 % (11.5-14.5); White Blood Count 5.3 K/mcL (4.3-11.1)
[2021-04-18] MEDS: Heparin 25,000UNIT/250ML 1/2NS 25,000 UNIT/250 ML IV.SOLN IVC SCH (19:17)
[2021-04-19] MEDS: Levothyroxine 25 MCG TABLET PO SCH (06:20)
[2021-04-19] MEDS ORDERED: Bumetanide 1 MG TABLET PO SCH (08:00)
[2021-04-19] MEDS: Apixaban 5 MG TABLET PO SCH (08:27)
[2021-04-19] MEDS: Thiamine (B-1) 100 MG TABLET PO SCH (08:27)
[2021-04-19] MEDS: Spironolactone 25 MG TABLET PO SCH (08:27)
[2021-04-19] MEDS: Metoprolol XL (24 HR) Succ 25 MG TAB.ER.24H PO SCH (08:27)
[2021-04-19] MEDS: *HR* Digoxin 0.125 MG TABLET PO SCH (08:30)
[2021-04-19] MEDS ORDERED: *HR* HYDROcodone/Acet 5/325 mg TABLET PO ONE (08:41)
[2021-04-19 10:25] VITALS: BP 130/70; PULSE 75; TEMP 97.6; O2SAT 98
== END 2021-04-19 14:06 | disposition home or self-care (01) | DRG 246 ==
LOC: 3BNU → SUATTDRO 04-06 12:51
PROVIDERS: ADMIT General Practice; ATTEND Internal Medicine

== ENCOUNTER 2021-05-29 14:17 | Inpatient (IN) ==
[2021-05-29] MEDS ORDERED: Ipratropium/Albuterol Neb 3 ML IH PRN (19:06)
[2021-05-29 20:16] LABS: Troponin I 0.04 ng/mL (< 0.04)
[2021-05-29] MEDS: Furosemide 40 MG/4 ML VIAL IVP SCH (21:00)
[2021-05-29 22:33] LABS: Basophils % 0.4 %; Eosinophils % 0.4 %; Hematocrit 30.3 % (37.5-50.1); Hemoglobin 8.9 g/dL (12.9-16.9); Immature Granulocytes % 0.3 % (0-4); Lymphocytes # 0.7 K/mcL (0.6-4.6); Lymphocytes % 8.7 %; Mean Corpuscular HGB Conc 29.4 g/dL (31.6-35.5); Mean Corpuscular Volume 95.3 fL (83.0-100.0); Monocytes # 0.3 K/mcL (0.0-1.3); Monocytes % 4.4 %; Neutrophils # 6.6 K/mcL (1.6-8.9); Platelet Count 276 K/mcL (140-400); Red Blood Count 3.18 M/mcL (4.19-5.50); Segmented Neutrophils % 85.8 %; White Blood Count 7.7 K/mcL (4.3-11.1)
[2021-05-29 22:38] LABS: Alanine Aminotransferase 11 Units/L (7-52); Albumin 3.3 g/dL (3.5-5.7); Alkaline Phosphatase 36 Units/L (34-104); Aspartate Amino Transferase 15 Units/L (13-39); BUN/Creatinine Ratio 17 (6-26); Bilirubin,Total 0.6 mg/dL (0.3-1.0); Blood Urea Nitrogen 18 mg/dL (8-23); Calcium 9.5 mg/dL (8.6-10.3); Carbon Dioxide 39 mEq/L (23-29); Chloride 88 mEq/L (98-107); Globulin 3.4 g/dL (2.4-3.5); Glucose 138 mg/dL (70-105); Osmolality,Calculated 282 (280-300); Phosphorous 4.1 mg/dL (2.7-4.5); Potassium 4.7 mEq/L (3.5-5.1); Sodium 134 mEq/L (136-145); Total Protein 6.7 g/dL (6.4-8.9); eGFR For African Americans > 60 (> 60); eGFR For Non-African Americans > 60 (> 60)
[2021-05-29] MEDS: *HR* HYDROcodone/Acet 7.5/325 mg TABLET PO PRN (23:18)
[2021-05-30 01:30] LABS: Basophils % 0.4 %; Eosinophils # 0.3 K/mcL (0.0-0.6); Eosinophils % 4.3 %; Hematocrit 27.2 % (37.5-50.1); Hemoglobin 8.4 g/dL (12.9-16.9); Immature Granulocytes % 0.3 % (0-4); Lymphocytes # 1.3 K/mcL (0.6-4.6); Lymphocytes % 18.5 %; Mean Corpuscular HGB Conc 30.9 g/dL (31.6-35.5); Mean Corpuscular Hemoglobin 29.2 pg (28.0-33.3); Mean Corpuscular Volume 94.4 fL (83.0-100.0); Mean Platelet Volume 9.7 fL (9.4-12.4); Monocytes # 0.6 K/mcL (0.0-1.3); Monocytes % 8.7 %; Neutrophils # 4.9 K/mcL (1.6-8.9); Platelet Count 275 K/mcL (140-400); Red Blood Count 2.88 M/mcL (4.19-5.50); Segmented Neutrophils % 67.8 %; White Blood Count 7.2 K/mcL (4.3-11.1)
[2021-05-30 01:36] LABS: INR 1.3; Prothrombin Time 14.8 Seconds (9.4-12.1)
[2021-05-30 01:54] LABS: Alanine Aminotransferase 11 Units/L (7-52); Albumin 3.1 g/dL (3.5-5.7); Albumin/Globulin Ratio 0.9 (1.1-2.2); Alkaline Phosphatase 31 Units/L (34-104); Aspartate Amino Transferase 14 Units/L (13-39); BUN/Creatinine Ratio 17 (6-26); Bilirubin,Total 0.5 mg/dL (0.3-1.0); Blood Urea Nitrogen 18 mg/dL (8-23); Calcium 9.3 mg/dL (8.6-10.3); Carbon Dioxide 45 mEq/L (23-29); Chloride 89 mEq/L (98-107); Globulin 3.3 g/dL (2.4-3.5); Glucose 138 mg/dL (70-105); Magnesium 1.9 mg/dL (1.6-2.6); Osmolality,Calculated 286 (280-300); Potassium 4.4 mEq/L (3.5-5.1); Sodium 136 mEq/L (136-145); Total Protein 6.4 g/dL (6.4-8.9); eGFR For African Americans > 60 (> 60); eGFR For Non-African Americans > 60 (> 60)
[2021-05-30] MEDS ORDERED: Albumin 25% 25gram/100mL 25 GM/100 ML IV.SOLN IVPB SCH (08:00)
[2021-05-30] MEDS: Metoprolol XL (24 HR) Succ 50 MG TAB.ER.24H PO SCH (09:28)
[2021-05-30] MEDS: *HR* Digoxin 0.125 MG TABLET PO SCH (09:28)
[2021-05-30] MEDS: Chlorhexidine Rinse 15 ML MOUTHWASH MM SCH ×2 (09:29→19:41)
[2021-05-30] MEDS: Aspirin 81 MG TAB.CHEW PO SCH (09:29)
[2021-05-30] MEDS: Furosemide 40 MG/4 ML VIAL IVP SCH ×2 (10:36→21:25)
[2021-05-30] MEDS: Ipratropium/Albuterol Neb 3 ML IH SCH ×3 (10:48→19:57)
[2021-05-30] MEDS: Budesonide/Formoterol 160/4.5 1 PUFF INH IH SCH ×2 (10:49→19:57)
[2021-05-30] MEDS: *HR* HYDROcodone/Acet 7.5/325 mg TABLET PO PRN (18:41)
[2021-05-30] MEDS: Albumin 25% 25gram/100mL 25 GM/100 ML IV.SOLN IVPB SCH (19:39)
[2021-05-30 20:12] LABS: ABG Base Excess 12 mEq/L (-2 to 3); ABG HCO3 39 mEq/L (21-27); ABG Oxygen Saturation 100 % (95-98); ABG PCO2 74 mmHg (35-45); ABG PH 7.34 pH Units (7.32-7.45); ABG PO2 246 mmHg (85-104); ABG TCO2 42 mEq/L (20-26)
[2021-05-30] MEDS ORDERED: Apixaban 5 MG TABLET PO SCH (21:00)
[2021-05-30] MEDS ORDERED: hydrOXYzine pamoate 25 MG CAPSULE PO ONE (23:41)
[2021-05-31] MEDS: Ipratropium/Albuterol Neb 3 ML IH SCH ×4 (04:19→20:29)
[2021-05-31] MEDS: Albumin 25% 25gram/100mL 25 GM/100 ML IV.SOLN IVPB SCH (05:51)
[2021-05-31 06:42] LABS: Hematocrit 27.2 % (37.5-50.1); Hemoglobin 8.1 g/dL (12.9-16.9); Mean Corpuscular HGB Conc 29.8 g/dL (31.6-35.5); Mean Corpuscular Hemoglobin 28.5 pg (28.0-33.3); Mean Corpuscular Volume 95.8 fL (83.0-100.0); Mean Platelet Volume 9.8 fL (9.4-12.4); Platelet Count 241 K/mcL (140-400); Red Blood Count 2.84 M/mcL (4.19-5.50); White Blood Count 6.6 K/mcL (4.3-11.1)
[2021-05-31 07:20] LABS: % Iron Saturation 9 % (20-55); BUN/Creatinine Ratio 19 (6-26); Blood Urea Nitrogen 25 mg/dL (8-23); Calcium 9.4 mg/dL (8.6-10.3); Carbon Dioxide 43 mEq/L (23-29); Chloride 87 mEq/L (98-107); Ferritin 95 ng/mL (20-250); Glucose 92 mg/dL (70-105); Iron 28 mcg/dL (65-175); Magnesium 1.9 mg/dL (1.6-2.6); Osmolality,Calculated 286 (280-300); Phosphorous 4.3 mg/dL (2.7-4.5); Potassium 4.6 mEq/L (3.5-5.1); Sodium 136 mEq/L (136-145); Transferrin 224 mg/dL (203-362); eGFR For African Americans > 60 (> 60); eGFR For Non-African Americans 55 (> 60)
[2021-05-31 07:26] LABS: Folate 5.6 ng/mL (3.0-16.0)
[2021-05-31] MEDS: Budesonide/Formoterol 160/4.5 1 PUFF INH IH SCH ×2 (07:58→20:30)
[2021-05-31] MEDS: Chlorhexidine Rinse 15 ML MOUTHWASH MM SCH ×2 (08:07→19:49)
[2021-05-31] MEDS: *HR* Digoxin 0.125 MG TABLET PO SCH (08:07)
[2021-05-31] MEDS: Aspirin 81 MG TAB.CHEW PO SCH (08:09)
[2021-05-31] MEDS: Metoprolol XL (24 HR) Succ 50 MG TAB.ER.24H PO SCH (08:09)
[2021-05-31] MEDS: Furosemide 40 MG/4 ML VIAL IVP SCH (08:12)
[2021-05-31 09:00] LABS: VBG HCO3 45 mEq/L (21-27); VBG PCO2 95 mmHg (41-51); VBG PH 7.28 pH Units (7.32-7.42); VBG PO2 87 mmHg (25-50)
[2021-05-31] MEDS ORDERED: Spironolactone 25 MG TABLET PO SCH (09:00)
[2021-05-31] MEDS: Pantoprazole 40 MG in 0.9 % Sodium Chloride Mini Bag 100 ML IVC SCH ×3 (12:18→21:45)
[2021-05-31] MEDS: *HR* HYDROcodone/Acet 7.5/325 mg TABLET PO PRN (12:30)
[2021-05-31] MEDS ORDERED: Dextrose 4 GM Chewable Tablets PO PRN ×2 (12:53)
[2021-05-31] MEDS ORDERED: *HR* Dextrose 50 % in Water (Syg) 50 ML SYRINGE IVP PRN (12:53)
[2021-05-31] MEDS ORDERED: D5% in Water 1,000 ML IVC PRN (12:53)
[2021-05-31] MEDS ORDERED: Saliva Stimulant 44.3ml BOTTLE PO PRN (12:54)
[2021-05-31 13:45] LABS: Hematocrit 26.2 % (37.5-50.1); Hemoglobin 7.7 g/dL (12.9-16.9)
[2021-05-31] MEDS ORDERED: Iron Sucrose Complex 400 MG in 0.9 % Sodium Chloride 250 ML IVPB ONE (14:55)
[2021-05-31] MEDS: Saliva Stimulant 44.3ml BOTTLE PO SCH (19:53)
[2021-05-31] MEDS ORDERED: 0.9 % Sodium Chloride 250 ML ONE (20:00)
[2021-06-01] MEDS: Pantoprazole 40 MG in 0.9 % Sodium Chloride Mini Bag 100 ML IVC SCH ×5 (02:58→19:59)
[2021-06-01] MEDS: Ipratropium/Albuterol Neb 3 ML IH SCH ×4 (03:46→20:09)
[2021-06-01 05:16] LABS: Hematocrit 28.6 % (37.5-50.1); Hemoglobin 8.7 g/dL (12.9-16.9); Mean Corpuscular HGB Conc 30.4 g/dL (31.6-35.5); Mean Corpuscular Hemoglobin 28.4 pg (28.0-33.3); Mean Corpuscular Volume 93.5 fL (83.0-100.0); Mean Platelet Volume 9.8 fL (9.4-12.4); Platelet Count 221 K/mcL (140-400); Red Blood Count 3.06 M/mcL (4.19-5.50); Red Cell Distribution Width 17.6 % (11.5-14.5); White Blood Count 6.8 K/mcL (4.3-11.1)
[2021-06-01 05:24] LABS: INR 1.7; Prothrombin Time 18.9 Seconds (9.4-12.1)
[2021-06-01 05:26] LABS: Activated Partial Thrombo Time 36.4 Seconds (26.0-36.0)
[2021-06-01 05:35] LABS: BUN/Creatinine Ratio 22 (6-26); Blood Urea Nitrogen 25 mg/dL (8-23); Calcium 9.1 mg/dL (8.6-10.3); Carbon Dioxide 44 mEq/L (23-29); Chloride 89 mEq/L (98-107); Glucose 114 mg/dL (70-105); Magnesium 1.9 mg/dL (1.6-2.6); Osmolality,Calculated 283 (280-300); Phosphorous 3.7 mg/dL (2.7-4.5); Potassium 4.4 mEq/L (3.5-5.1); Sodium 134 mEq/L (136-145); eGFR For African Americans > 60 (> 60); eGFR For Non-African Americans > 60 (> 60)
[2021-06-01] MEDS: Albumin 25% 25gram/100mL 25 GM/100 ML IV.SOLN IVPB SCH (06:38)
[2021-06-01] MEDS ORDERED: Simethicone 40 MG/0.6 ML MLS IR ONE ×2 (07:38→14:27)
[2021-06-01] MEDS: Saliva Stimulant 44.3ml BOTTLE PO SCH (07:49)
[2021-06-01] MEDS: Budesonide/Formoterol 160/4.5 1 PUFF INH IH SCH ×2 (08:31→20:09)
[2021-06-01] MEDS ORDERED: Furosemide 40 MG/4 ML VIAL IVP SCH (09:00)
[2021-06-01] MEDS: Nicotine 21 MG PATCH.TD24 TD SCH (09:44)
[2021-06-01] MEDS: Metoprolol XL (24 HR) Succ 50 MG TAB.ER.24H PO SCH (09:44)
[2021-06-01] MEDS: Spironolactone 12.5 MG TABLET PO SCH (09:45)
[2021-06-01] MEDS: Aspirin 81 MG TAB.CHEW PO SCH (09:45)
[2021-06-01] MEDS: Chlorhexidine Rinse 15 ML MOUTHWASH MM SCH (09:45)
[2021-06-01] MEDS: *HR* Digoxin 0.125 MG TABLET PO SCH (09:45)
[2021-06-01] MEDS: *HR* HYDROcodone/Acet 7.5/325 mg TABLET PO PRN ×2 (10:04→23:38)
[2021-06-01] MEDS ORDERED: Lidocaine -MPF 2% 2 ML VIAL ONE (11:32)
[2021-06-01] MEDS ORDERED: Albuterol 2.5 MG/3 ML NEBULIZER ONE (11:45)
[2021-06-01] MEDS ORDERED: Albuterol 2.5 MG/3 ML NEBULIZER IH ONE (11:45)
[2021-06-01] MEDS ORDERED: Tetracaine/Benzocaine/Butamben 1 SPRAY AEROSOL MM ONE (12:06)
[2021-06-01 16:50] LABS: Bilirubin,Urine Negative (Negative); Blood,Urine Negative (Negative); Clarity,Urine Clear (Clear); Color,Urine Light-Yellow (Yellow); Glucose,Urine (UA) Normal (Normal); Ketones,Urine Negative (Negative); Leukocyte Esterase,Urine Negative (Negative); Nitrite,Urine Negative (Negative); Protein,Urine 100 mg/dL (Neg-Trace); Specific Gravity,Urine 1.011 (1.010-1.025); Urobilinogen,Urine Normal (Normal)
[2021-06-01 17:35] LABS: Amorphous Sediment,Urine Few per hpf (None-Few); WBC,Urine 0-3 per hpf (0-3)
[2021-06-02] MEDS: Pantoprazole 40 MG in 0.9 % Sodium Chloride Mini Bag 100 ML IVC SCH ×2 (01:33→06:21)
[2021-06-02 02:24] LABS: Hematocrit 27.3 % (37.5-50.1); Hemoglobin 8.1 g/dL (12.9-16.9); Mean Corpuscular HGB Conc 29.7 g/dL (31.6-35.5); Mean Corpuscular Hemoglobin 28.3 pg (28.0-33.3); Mean Corpuscular Volume 95.5 fL (83.0-100.0); Mean Platelet Volume 10.1 fL (9.4-12.4); Platelet Count 189 K/mcL (140-400); Red Blood Count 2.86 M/mcL (4.19-5.50); Red Cell Distribution Width 17.3 % (11.5-14.5)
[2021-06-02 02:44] LABS: Calcium 9.1 mg/dL (8.6-10.3); Magnesium 1.8 mg/dL (1.6-2.6); Phosphorous 3.7 mg/dL (2.7-4.5); Potassium 5.1 mEq/L (3.5-5.1)
[2021-06-02] MEDS: Ipratropium/Albuterol Neb 3 ML IH SCH ×4 (03:47→20:30)
[2021-06-02] MEDS: Albumin 25% 25gram/100mL 25 GM/100 ML IV.SOLN IVPB SCH (07:13)
[2021-06-02] MEDS: Nicotine 21 MG PATCH.TD24 TD SCH (09:31)
[2021-06-02] MEDS: *HR* Digoxin 0.125 MG TABLET PO SCH (09:32)
[2021-06-02] MEDS: Spironolactone 12.5 MG TABLET PO SCH (09:32)
[2021-06-02] MEDS: Metoprolol XL (24 HR) Succ 50 MG TAB.ER.24H PO SCH (09:34)
[2021-06-02] MEDS: Aspirin 81 MG TAB.CHEW PO SCH (09:34)
[2021-06-02] MEDS: Budesonide/Formoterol 160/4.5 1 PUFF INH IH SCH ×2 (09:57→20:30)
[2021-06-02] MEDS: *HR* HYDROcodone/Acet 7.5/325 mg TABLET PO PRN (16:36)
[2021-06-03] MEDS: Ipratropium/Albuterol Neb 3 ML IH SCH ×4 (04:04→20:24)
[2021-06-03] MEDS: *HR* HYDROcodone/Acet 7.5/325 mg TABLET PO PRN ×3 (04:52→19:45)
[2021-06-03 05:19] LABS: Hematocrit 28.3 % (37.5-50.1); Hemoglobin 8.4 g/dL (12.9-16.9); Mean Corpuscular HGB Conc 29.7 g/dL (31.6-35.5); Mean Corpuscular Hemoglobin 28.4 pg (28.0-33.3); Mean Corpuscular Volume 95.6 fL (83.0-100.0); Mean Platelet Volume 10.1 fL (9.4-12.4); Platelet Count 169 K/mcL (140-400); Red Blood Count 2.96 M/mcL (4.19-5.50); White Blood Count 7.7 K/mcL (4.3-11.1)
[2021-06-03 05:42] LABS: BUN/Creatinine Ratio 28 (6-26); Blood Urea Nitrogen 35 mg/dL (8-23); Calcium 9.5 mg/dL (8.6-10.3); Carbon Dioxide 41 mEq/L (23-29); Chloride 92 mEq/L (98-107); Glucose 104 mg/dL (70-105); Osmolality,Calculated 288 (280-300); Potassium 4.8 mEq/L (3.5-5.1); Sodium 135 mEq/L (136-145); eGFR For African Americans > 60 (> 60); eGFR For Non-African Americans 56 (> 60)
[2021-06-03] MEDS: Nicotine 21 MG PATCH.TD24 TD SCH (08:53)
[2021-06-03] MEDS: *HR* Digoxin 0.125 MG TABLET PO SCH (08:53)
[2021-06-03] MEDS: Metoprolol XL (24 HR) Succ 50 MG TAB.ER.24H PO SCH (08:54)
[2021-06-03] MEDS: Furosemide 40 MG TABLET PO SCH (08:54)
[2021-06-03] MEDS: Aspirin 81 MG TAB.CHEW PO SCH (08:54)
[2021-06-03] MEDS: Spironolactone 12.5 MG TABLET PO SCH (08:54)
[2021-06-03] MEDS: Budesonide/Formoterol 160/4.5 1 PUFF INH IH SCH ×2 (09:19→20:24)
[2021-06-04] MEDS: Ipratropium/Albuterol Neb 3 ML IH SCH ×4 (04:34→20:37)
[2021-06-04] MEDS: Nicotine 21 MG PATCH.TD24 TD SCH (07:28)
[2021-06-04] MEDS: Spironolactone 12.5 MG TABLET PO SCH (07:28)
[2021-06-04] MEDS: *HR* Digoxin 0.125 MG TABLET PO SCH (07:29)
[2021-06-04] MEDS: Metoprolol XL (24 HR) Succ 50 MG TAB.ER.24H PO SCH (07:30)
[2021-06-04] MEDS: Furosemide 40 MG TABLET PO SCH (07:30)
[2021-06-04] MEDS: Aspirin 81 MG TAB.CHEW PO SCH (07:30)
[2021-06-04] MEDS: Budesonide/Formoterol 160/4.5 1 PUFF INH IH SCH ×2 (08:26→20:37)
[2021-06-04] MEDS: *HR* HYDROcodone/Acet 7.5/325 mg TABLET PO PRN (20:39)
[2021-06-05] MEDS: Ipratropium/Albuterol Neb 3 ML IH SCH ×4 (03:44→19:36)
[2021-06-05] MEDS: Budesonide/Formoterol 160/4.5 1 PUFF INH IH SCH ×2 (07:47→19:36)
[2021-06-05] MEDS: Spironolactone 12.5 MG TABLET PO SCH (08:24)
[2021-06-05] MEDS: *HR* Digoxin 0.125 MG TABLET PO SCH (08:24)
[2021-06-05] MEDS: Furosemide 40 MG TABLET PO SCH (08:24)
[2021-06-05] MEDS: Metoprolol XL (24 HR) Succ 50 MG TAB.ER.24H PO SCH (08:24)
[2021-06-05] MEDS: Aspirin 81 MG TAB.CHEW PO SCH (08:25)
[2021-06-05] MEDS: Nicotine 21 MG PATCH.TD24 TD SCH (08:25)
[2021-06-05] MEDS: *HR* HYDROcodone/Acet 7.5/325 mg TABLET PO PRN ×2 (08:34→18:30)
[2021-06-05 16:08] LABS: Adenovirus Not Detected (Not Detect); Bordetella Pertussis Not Detected (Not Detect); Chlamydophila pneumoniae Not Detected (Not Detect); Coronavirus 229E Not Detected (Not Detect); Coronavirus HKU1 Not Detected (Not Detect); Coronavirus NL63 Not Detected (Not Detect); Coronavirus OC43 Not Detected (Not Detect); Human Metapneumovirus Not Detected (Not Detect); Human Rhinovirus/Enterovirus Not Detected (Not Detect); Influenza A Subtype 2009 H1 Not Detected (Not Detect); Influenza B Not Detected (Not Detect); Mycoplasma pneumoniae Not Detected (Not Detect); Parainfluenza Virus 1 Not Detected (Not Detect); Parainfluenza Virus 2 Not Detected (Not Detect); Parainfluenza Virus 3 Not Detected (Not Detect); Parainfluenza Virus 4 Not Detected (Not Detect); Respiratory Syncytial Virus Not Detected (Not Detect); SARS-CoV-2 Not Detected (Not Detect)
[2021-06-05 19:41] VITALS: BP 116/59; PULSE 97; TEMP 97.7; O2SAT 98
== END 2021-06-05 22:30 | DRG 280 ==
LOC: 2NENU → SUATTDRO 17:47
PROVIDERS: ADMIT Internal Medicine; ATTEND Hospitalist

== ENCOUNTER 2021-06-08 06:11 | Inpatient (IN) ==
[2021-06-08] MEDS ORDERED: Furosemide 40 MG/4 ML VIAL IVP ONE (13:28)
[2021-06-08] MEDS ORDERED: Naloxone 0.4 MG/ML INJ IVP PRN (13:33)
[2021-06-08] MEDS ORDERED: Melatonin 3 MG TABLET PO PRN (13:33)
[2021-06-08] MEDS ORDERED: Acetaminophen 325 MG TABLET PO PRN (13:33)
[2021-06-08] MEDS ORDERED: Ondansetron 4 MG/2 ML VIAL IVP PRN (13:33)
[2021-06-08] MEDS ORDERED: Ipratropium/Albuterol Neb 3 ML IH PRN (13:35)
[2021-06-08] MEDS: *HR* HYDROcodone/Acet 7.5/325 mg TABLET PO PRN (16:44)
[2021-06-08] MEDS: Budesonide/Formoterol 160/4.5 1 PUFF INH IH SCH (19:59)
[2021-06-08] MEDS: Furosemide 40 MG/4 ML VIAL IVP SCH (20:44)
[2021-06-09 05:18] LABS: BUN/Creatinine Ratio 26 (6-26); Blood Urea Nitrogen 27 mg/dL (8-23); Calcium 9.8 mg/dL (8.6-10.3); Carbon Dioxide > 45 mEq/L (23-29); Chloride 85 mEq/L (98-107); Glucose 96 mg/dL (70-105); Magnesium 1.9 mg/dL (1.6-2.6); Osmolality,Calculated 289 (280-300); Phosphorous 2.8 mg/dL (2.7-4.5); Potassium 3.5 mEq/L (3.5-5.1); Sodium 137 mEq/L (136-145); Troponin I 0.08 ng/mL (< 0.04); eGFR For African Americans > 60 (> 60); eGFR For Non-African Americans > 60 (> 60)
[2021-06-09] MEDS: *HR* HYDROcodone/Acet 7.5/325 mg TABLET PO PRN ×2 (06:23→21:50)
[2021-06-09] MEDS: Thiamine (B-1) 100 MG TABLET PO SCH (08:17)
[2021-06-09] MEDS: lisinopriL 5 MG TABLET PO SCH (08:17)
[2021-06-09] MEDS: *HR* Digoxin 0.125 MG TABLET PO SCH (08:17)
[2021-06-09] MEDS: Metoprolol XL (24 HR) Succ 50 MG TAB.ER.24H PO SCH (08:17)
[2021-06-09] MEDS: Aspirin 81 MG TAB.CHEW PO SCH (08:18)
[2021-06-09] MEDS: Linaclotide [Linzess] 290 MCG Capsule PO SCH (08:18)
[2021-06-09] MEDS: Spironolactone 25 MG TABLET PO SCH (08:18)
[2021-06-09] MEDS: Budesonide/Formoterol 160/4.5 1 PUFF INH IH SCH ×2 (08:31→19:52)
[2021-06-09] MEDS: Furosemide 40 MG/4 ML VIAL IVP SCH ×2 (11:54→17:38)
[2021-06-10 00:49] LABS: VBG HCO3 48 mEq/L (21-27); VBG PCO2 90 mmHg (41-51); VBG PH 7.34 pH Units (7.32-7.42); VBG PO2 62 mmHg (25-50)
[2021-06-10 00:54] LABS: Hematocrit 29.1 % (37.5-50.1); Hemoglobin 8.9 g/dL (12.9-16.9); Mean Corpuscular HGB Conc 30.6 g/dL (31.6-35.5); Mean Corpuscular Hemoglobin 29.6 pg (28.0-33.3); Mean Corpuscular Volume 96.7 fL (83.0-100.0); Mean Platelet Volume 10.9 fL (9.4-12.4); Platelet Count 158 K/mcL (140-400); Red Blood Count 3.01 M/mcL (4.19-5.50); Red Cell Distribution Width 17.6 % (11.5-14.5); White Blood Count 6.7 K/mcL (4.3-11.1)
[2021-06-10 02:48] LABS: BUN/Creatinine Ratio 27 (6-26); Blood Urea Nitrogen 29 mg/dL (8-23); Calcium 9.4 mg/dL (8.6-10.3); Carbon Dioxide > 45 mEq/L (23-29); Chloride 84 mEq/L (98-107); Glucose 82 mg/dL (70-105); Osmolality,Calculated 283 (280-300); Potassium 4.4 mEq/L (3.5-5.1); Sodium 134 mEq/L (136-145); eGFR For African Americans > 60 (> 60); eGFR For Non-African Americans > 60 (> 60)
[2021-06-10] MEDS: Thiamine (B-1) 100 MG TABLET PO SCH (08:35)
[2021-06-10] MEDS: *HR* Digoxin 0.125 MG TABLET PO SCH (08:35)
[2021-06-10] MEDS: lisinopriL 5 MG TABLET PO SCH (08:35)
[2021-06-10] MEDS: Aspirin 81 MG TAB.CHEW PO SCH (08:35)
[2021-06-10] MEDS: Metoprolol XL (24 HR) Succ 50 MG TAB.ER.24H PO SCH (08:35)
[2021-06-10] MEDS: Linaclotide [Linzess] 290 MCG Capsule PO SCH (08:36)
[2021-06-10] MEDS: Furosemide 40 MG/4 ML VIAL IVP SCH ×2 (08:36→16:35)
[2021-06-10] MEDS: Spironolactone 25 MG TABLET PO SCH (08:36)
[2021-06-10] MEDS: Budesonide/Formoterol 160/4.5 1 PUFF INH IH SCH ×2 (09:07→20:19)
[2021-06-10] MEDS: *HR* HYDROcodone/Acet 7.5/325 mg TABLET PO PRN (16:35)
[2021-06-11] MEDS: *HR* HYDROcodone/Acet 7.5/325 mg TABLET PO PRN ×2 (03:48→21:27)
[2021-06-11 05:39] LABS: VBG HCO3 45 mEq/L (21-27); VBG PCO2 81 mmHg (41-51); VBG PH 7.36 pH Units (7.32-7.42); VBG PO2 130 mmHg (25-50)
[2021-06-11] MEDS: *HR* Enoxaparin 40 MG/0.4 ML SYRINGE SQ SCH (05:53)
[2021-06-11 06:02] LABS: BUN/Creatinine Ratio 20 (6-26); Blood Urea Nitrogen 32 mg/dL (8-23); Calcium 9.1 mg/dL (8.6-10.3); Carbon Dioxide > 45 mEq/L (23-29); Chloride 86 mEq/L (98-107); Glucose 103 mg/dL (70-105); Osmolality,Calculated 285 (280-300); Potassium 4.5 mEq/L (3.5-5.1); Sodium 134 mEq/L (136-145); eGFR For African Americans 52 (> 60); eGFR For Non-African Americans 43 (> 60)
[2021-06-11] MEDS: Spironolactone 25 MG TABLET PO SCH (07:46)
[2021-06-11] MEDS: Furosemide 40 MG/4 ML VIAL IVP SCH (07:46)
[2021-06-11] MEDS: Thiamine (B-1) 100 MG TABLET PO SCH (07:46)
[2021-06-11] MEDS: *HR* Digoxin 0.125 MG TABLET PO SCH (07:47)
[2021-06-11] MEDS: Metoprolol XL (24 HR) Succ 50 MG TAB.ER.24H PO SCH (07:47)
[2021-06-11] MEDS: lisinopriL 5 MG TABLET PO SCH (07:47)
[2021-06-11] MEDS: Aspirin 81 MG TAB.CHEW PO SCH (07:48)
[2021-06-11] MEDS: Linaclotide [Linzess] 290 MCG Capsule PO SCH (07:48)
[2021-06-11] MEDS: Budesonide/Formoterol 160/4.5 1 PUFF INH IH SCH ×2 (10:40→20:45)
[2021-06-12] MEDS: *HR* Enoxaparin 40 MG/0.4 ML SYRINGE SQ SCH (04:52)
[2021-06-12 04:54] LABS: ABG Base Excess 13 mEq/L (-2 to 3); ABG HCO3 40 mEq/L (21-27); ABG Oxygen Saturation 97 % (95-98); ABG PCO2 69 mmHg (35-45); ABG PH 7.37 pH Units (7.32-7.45); ABG PO2 97 mmHg (85-104); ABG TCO2 42 mEq/L (20-26)
[2021-06-12 04:58] LABS: Basophils % 0.3 %; Eosinophils % 17.3 %; Hematocrit 27.5 % (37.5-50.1); Hemoglobin 8.3 g/dL (12.9-16.9); Immature Granulocytes % 0.2 % (0-4); Lymphocytes # 1.7 K/mcL (0.6-4.6); Lymphocytes % 29.4 %; Mean Corpuscular HGB Conc 30.2 g/dL (31.6-35.5); Mean Corpuscular Hemoglobin 28.5 pg (28.0-33.3); Mean Corpuscular Volume 94.5 fL (83.0-100.0); Mean Platelet Volume 11.1 fL (9.4-12.4); Monocytes # 0.4 K/mcL (0.0-1.3); Monocytes % 6.8 %; Neutrophils # 2.7 K/mcL (1.6-8.9); Nucleated Red Blood Cells 0.3 /100 WBC (0); Platelet Count 131 K/mcL (140-400); Red Blood Count 2.91 M/mcL (4.19-5.50); Red Cell Distribution Width 17.3 % (11.5-14.5); White Blood Count 5.9 K/mcL (4.3-11.1)
[2021-06-12] MEDS: *HR* HYDROcodone/Acet 7.5/325 mg TABLET PO PRN (05:02)
[2021-06-12 05:23] LABS: Albumin 3.2 g/dL (3.5-5.7); Albumin/Globulin Ratio 1.4 (1.1-2.2); Bilirubin,Total 0.6 mg/dL (0.3-1.0); Globulin 2.3 g/dL (2.4-3.5); Potassium 4.7 mEq/L (3.5-5.1); Total Protein 5.5 g/dL (6.4-8.9)
[2021-06-12] MEDS: Budesonide/Formoterol 160/4.5 1 PUFF INH IH SCH (07:37)
[2021-06-12] MEDS: Metoprolol XL (24 HR) Succ 50 MG TAB.ER.24H PO SCH (07:47)
[2021-06-12] MEDS: Spironolactone 25 MG TABLET PO SCH (07:48)
[2021-06-12] MEDS: Thiamine (B-1) 100 MG TABLET PO SCH (07:48)
[2021-06-12] MEDS: *HR* Digoxin 0.125 MG TABLET PO SCH (07:48)
[2021-06-12] MEDS: Aspirin 81 MG TAB.CHEW PO SCH (07:48)
[2021-06-12] MEDS ORDERED: Bumetanide 1 MG TABLET PO SCH (08:00)
[2021-06-12 10:40] VITALS: BP 125/60; PULSE 74; TEMP 97.6; O2SAT 95
[2021-06-12 12:21] LABS: Influenza A PCR Negative (Negative); Influenza B PCR Negative (Negative); Resp. Syncytial Virus PCR Negative (Negative)
[2021-06-12 12:22] LABS: SARS-CoV-2 by PCR (In House) Negative (Negative)
== END 2021-06-12 14:25 | DRG 280 ==
LOC: 2NENU → SUATTDRO 06-10 14:50
PROVIDERS: ADMIT Family Medicine; ATTEND Family Medicine

== ENCOUNTER 2021-07-04 21:32 | Inpatient (IN) ==
[2021-07-05] MEDS ORDERED: Ondansetron 4 MG/2 ML VIAL IVP PRN (00:03)
[2021-07-05] MEDS ORDERED: Melatonin 3 MG TABLET PO PRN (00:03)
[2021-07-05] MEDS ORDERED: Naloxone 0.4 MG/ML INJ IVP PRN (00:03)
[2021-07-05 00:42] LABS: ABG Base Excess 5 mEq/L (-2 to 3); ABG HCO3 32 mEq/L (21-27); ABG Oxygen Saturation 99 % (95-98); ABG PCO2 58 mmHg (35-45); ABG PH 7.34 pH Units (7.32-7.45); ABG PO2 154 mmHg (85-104); ABG TCO2 33 mEq/L (20-26)
[2021-07-05 02:28] LABS: Alanine Aminotransferase 1114 Units/L (7-52); Albumin 3.6 g/dL (3.5-5.7); Albumin/Globulin Ratio 1.1 (1.1-2.2); Alkaline Phosphatase 43 Units/L (34-104); Aspartate Amino Transferase 1486 Units/L (13-39); BUN/Creatinine Ratio 25 (6-26); Bilirubin,Direct 1.7 mg/dL (0.0-0.2); Bilirubin,Indirect 0.9 mg/dL (0.0-1.0); Bilirubin,Total 2.6 mg/dL (0.3-1.0); Blood Urea Nitrogen 59 mg/dL (8-23); Calcium 9.1 mg/dL (8.6-10.3); Carbon Dioxide 34 mEq/L (23-29); Chloride 83 mEq/L (98-107); Globulin 3.2 g/dL (2.4-3.5); Glucose 97 mg/dL (70-105); Osmolality,Calculated 280 (280-300); Potassium 4.5 mEq/L (3.5-5.1); Sodium 127 mEq/L (136-145); Total Protein 6.8 g/dL (6.4-8.9); eGFR For African Americans 33 (> 60); eGFR For Non-African Americans 28 (> 60)
[2021-07-05] MEDS: Azithromycin 500 MG in D5% in Water 250 ML IVPB SCH (03:49)
[2021-07-05] MEDS ORDERED: Chloraseptic Spray 177 ML BOTTLE MM PRN (03:58)
[2021-07-05 04:48] LABS: Adenovirus Not Detected (Not Detect); Bordetella Pertussis Not Detected (Not Detect); Chlamydophila pneumoniae Not Detected (Not Detect); Coronavirus 229E Not Detected (Not Detect); Coronavirus HKU1 Not Detected (Not Detect); Coronavirus NL63 Not Detected (Not Detect); Coronavirus OC43 Not Detected (Not Detect); Human Metapneumovirus Not Detected (Not Detect); Human Rhinovirus/Enterovirus Not Detected (Not Detect); Influenza A Subtype 2009 H1 Not Detected (Not Detect); Influenza B Not Detected (Not Detect); Mycoplasma pneumoniae Not Detected (Not Detect); Parainfluenza Virus 1 Not Detected (Not Detect); Parainfluenza Virus 2 Not Detected (Not Detect); Parainfluenza Virus 3 Not Detected (Not Detect); Parainfluenza Virus 4 Not Detected (Not Detect); Respiratory Syncytial Virus Not Detected (Not Detect); SARS-CoV-2 Not Detected (Not Detect)
[2021-07-05] MEDS: *HR* Heparin 5,000 UNIT/ML VIAL SQ SCH ×2 (04:58→17:11)
[2021-07-05 06:28] LABS: Bilirubin,Urine Small (Negative); Blood,Urine Negative (Negative); Clarity,Urine Slightly Cloudy (Clear); Color,Urine Yellow (Yellow); Glucose,Urine (UA) Normal (Normal); Ketones,Urine Negative (Negative); Leukocyte Esterase,Urine Negative (Negative); Nitrite,Urine Negative (Negative); Protein,Urine 100 mg/dL (Neg-Trace); Specific Gravity,Urine >= 1.030 (1.010-1.025); Urobilinogen,Urine Normal (Normal)
[2021-07-05 06:30] LABS: Bacteria,Urine Many per hpf (None-Few); Squamous Epithelial Cell,Urine Few per hpf (None-Few)
[2021-07-05 06:31] LABS: Budding Yeast,Urine Few per hpf (None Seen); Mucus,Urine Few per lpf (None-Few)
[2021-07-05 06:54] LABS: Hematocrit 28.2 % (37.5-50.1); Hemoglobin 8.8 g/dL (12.9-16.9); Lymphocytes # 0.5 K/mcL (0.6-4.6); Mean Corpuscular HGB Conc 31.2 g/dL (31.6-35.5); Mean Corpuscular Hemoglobin 29.4 pg (28.0-33.3); Mean Corpuscular Volume 94.3 fL (83.0-100.0); Mean Platelet Volume 10.9 fL (9.4-12.4); Platelet Count 153 K/mcL (140-400); Red Blood Count 2.99 M/mcL (4.19-5.50); Red Cell Distribution Width 17.4 % (11.5-14.5); White Blood Count 3.6 K/mcL (4.3-11.1)
[2021-07-05 07:02] LABS: Prothrombin Time 21.8 Seconds (9.4-12.1)
[2021-07-05 07:18] LABS: Procalcitonin 6.09 ng/mL (0.00-0.15)
[2021-07-05 07:40] LABS: Acetaminophen < 10 mcg/mL (10-20); Alanine Aminotransferase 1146 Units/L (7-52); Albumin 3.6 g/dL (3.5-5.7); Albumin/Globulin Ratio 1.2 (1.1-2.2); Alkaline Phosphatase 46 Units/L (34-104); Aspartate Amino Transferase 1415 Units/L (13-39); BUN/Creatinine Ratio 27 (6-26); Bilirubin,Direct 1.8 mg/dL (0.0-0.2); Bilirubin,Indirect 0.8 mg/dL (0.0-1.0); Bilirubin,Total 2.6 mg/dL (0.3-1.0); Blood Urea Nitrogen 65 mg/dL (8-23); Carbon Dioxide 34 mEq/L (23-29); Chloride 82 mEq/L (98-107); Globulin 3.1 g/dL (2.4-3.5); Glucose 96 mg/dL (70-105); Osmolality,Calculated 283 (280-300); Potassium 4.8 mEq/L (3.5-5.1); Sodium 127 mEq/L (136-145); Thyroid Stimulating Hormone 1.866 mcIU/mL (0.340-5.600); Total Protein 6.7 g/dL (6.4-8.9); Troponin I 0.26 ng/mL (< 0.04); eGFR For African Americans 32 (> 60); eGFR For Non-African Americans 26 (> 60)
[2021-07-05] MEDS ORDERED: Perflutren Lipid Microsphere 1.3 ML in 0.9 % Sodium Chloride 8.7 ML IVP PRN (07:58)
[2021-07-05] MEDS: Albumin 25% 25gram/100mL 25 GM/100 ML IV.SOLN IVPB SCH ×3 (08:11→22:57)
[2021-07-05 08:18] LABS: Monocytes # 0.1 K/mcL (0.0-1.3)
[2021-07-05 08:19] LABS: Anisocytosis 1+ (Not Present); Hypochromasia Present (Not Present); Poikilocytosis 1+ (Not Present)
[2021-07-05 08:20] LABS: Platelet Estimate Normal (Normal)
[2021-07-05 08:36] LABS: Uric Acid 12.6 mg/dL (2.3-7.6)
[2021-07-05 08:41] LABS: Hepatitis B Surface Antigen Nonreactive (Nonreactive)
[2021-07-05] MEDS ORDERED: Furosemide 40 MG/4 ML VIAL IVP SCH (09:00)
[2021-07-05 09:09] LABS: Hepatitis B Core IgM Nonreactive (Nonreactive); Hepatitis C Virus Antibody Nonreactive (Nonreactive)
[2021-07-05 09:11] LABS: Hepatitis A Antibody IgM Nonreactive (Nonreactive)
[2021-07-05] MEDS: Piperacillin/Tazobactam 3.375 GM in 0.9 % Sodium Chloride Mini Bag 100 ML IVPB SCH ×2 (10:05→18:43)
[2021-07-05] MEDS: Aspirin Enteric Coated 81 MG Tablet PO SCH (10:11)
[2021-07-05 10:13] LABS: Salicylate < 2.5 mg/dL (15.0-30.0)
[2021-07-05] MEDS ORDERED: D5 IVC ONE ×2 (10:15→16:00)
[2021-07-05] MEDS ORDERED: ACETYLCYSTEINE IVC ONE ×2 (10:15→16:00)
[2021-07-05] MEDS ORDERED: WATER IVC ONE ×2 (10:15→16:00)
[2021-07-05] MEDS ORDERED: Acetylcysteine IV 3,600 MG in D5% in Water 500 ML IVC ONE (11:30)
[2021-07-05 15:41] LABS: INR 2.3; Prothrombin Time 25.1 Seconds (9.4-12.1)
[2021-07-05 15:51] LABS: Albumin 3.5 g/dL (3.5-5.7); Albumin/Globulin Ratio 1.2 (1.1-2.2); Bilirubin,Direct 1.7 mg/dL (0.0-0.2); Bilirubin,Indirect 0.8 mg/dL (0.0-1.0); Bilirubin,Total 2.5 mg/dL (0.3-1.0); Calcium 8.6 mg/dL (8.6-10.3); Globulin 2.9 g/dL (2.4-3.5); Potassium 4.6 mEq/L (3.5-5.1); Total Protein 6.4 g/dL (6.4-8.9)
[2021-07-05] MEDS: Bumetanide 1 MG/4 ML VIAL IVP SCH (17:10)
[2021-07-05 17:40] LABS: Protein/Creatinine Ratio,Urine 4.15 mg/mg (0.00-0.20)
[2021-07-05] MEDS: Doxycycline 100 MG in 0.9 % Sodium Chloride Mini Bag 100 ML IVPB SCH (17:44)
[2021-07-05] MEDS ORDERED: cefTRIAXone 1,000 MG in 0.9 % Sodium Chloride 10 ML IVP ONE (20:00)
[2021-07-05] MEDS: Budesonide/Formoterol 160/4.5 1 PUFF INH IH SCH (20:53)
[2021-07-05] MEDS ORDERED: Haloperidol Lactate 5 MG/ML VIAL IVP ONE (22:36)
[2021-07-05] MEDS: Ipratropium/Albuterol Neb 3 ML IH PRN (23:11)
[2021-07-06] MEDS: Piperacillin/Tazobactam 3.375 GM in 0.9 % Sodium Chloride Mini Bag 100 ML IVPB SCH ×4 (00:27→21:21)
[2021-07-06 02:49] LABS: Hematocrit 23.8 % (37.5-50.1); Hemoglobin 7.6 g/dL (12.9-16.9); Mean Corpuscular HGB Conc 31.9 g/dL (31.6-35.5); Mean Corpuscular Hemoglobin 29.3 pg (28.0-33.3); Mean Corpuscular Volume 91.9 fL (83.0-100.0); Mean Platelet Volume 11.9 fL (9.4-12.4); Platelet Count 121 K/mcL (140-400); Red Blood Count 2.59 M/mcL (4.19-5.50); Red Cell Distribution Width 17.2 % (11.5-14.5); White Blood Count 4.1 K/mcL (4.3-11.1)
[2021-07-06] MEDS: Ipratropium/Albuterol Neb 3 ML IH PRN (03:32)
[2021-07-06 03:49] LABS: Albumin 3.9 g/dL (3.5-5.7); Albumin/Globulin Ratio 1.4 (1.1-2.2); Calcium 8.4 mg/dL (8.6-10.3); Globulin 2.7 g/dL (2.4-3.5); Magnesium 1.9 mg/dL (1.6-2.6); Phosphorous 6.4 mg/dL (2.7-4.5); Total Protein 6.6 g/dL (6.4-8.9)
[2021-07-06 03:51] LABS: ABG Base Excess 4 mEq/L (-2 to 3); ABG HCO3 33 mEq/L (21-27); ABG Oxygen Saturation 98 % (95-98); ABG PCO2 78 mmHg (35-45); ABG PH 7.23 pH Units (7.32-7.45); ABG PO2 127 mmHg (85-104); ABG TCO2 35 mEq/L (20-26)
[2021-07-06] MEDS: Azithromycin 500 MG in D5% in Water 250 ML IVPB SCH (04:38)
[2021-07-06 05:14] LABS: Vitamin B12 > 1500 pg/mL (250-1100); Vitamin D 25 Hydroxy 37 ng/mL (30-80)
[2021-07-06] MEDS: *HR* Heparin 5,000 UNIT/ML VIAL SQ SCH ×2 (05:42→18:01)
[2021-07-06] MEDS: Doxycycline 100 MG in 0.9 % Sodium Chloride Mini Bag 100 ML IVPB SCH ×2 (05:42→17:41)
[2021-07-06] MEDS: Budesonide/Formoterol 160/4.5 1 PUFF INH IH SCH ×2 (07:49→20:34)
[2021-07-06] MEDS: *HR* Digoxin 0.125 MG TABLET PO SCH ×2 (07:51→08:22)
[2021-07-06] MEDS: Metoprolol XL (24 HR) Succ 50 MG TAB.ER.24H PO SCH ×2 (07:51→08:23)
[2021-07-06] MEDS: Aspirin Enteric Coated 81 MG Tablet PO SCH ×2 (07:51→08:20)
[2021-07-06] MEDS: Bumetanide 1 MG/4 ML VIAL IVP SCH (08:02)
[2021-07-06] MEDS: Albumin 25% 25gram/100mL 25 GM/100 ML IV.SOLN IVPB SCH ×2 (08:03→17:45)
[2021-07-06] MEDS ORDERED: Haloperidol Lactate 5 MG/ML VIAL IVP PRN (08:29)
[2021-07-06 08:44] LABS: ABG Base Excess 4 mEq/L (-2 to 3); ABG HCO3 32 mEq/L (21-27); ABG Oxygen Saturation 97 % (95-98); ABG PCO2 71 mmHg (35-45); ABG PH 7.27 pH Units (7.32-7.45); ABG PO2 113 mmHg (85-104); ABG TCO2 35 mEq/L (20-26); Blood Gas Modality BiLevel
[2021-07-06] MEDS: Pantoprazole 40 MG VIAL IVP SCH (13:02)
[2021-07-06] MEDS ORDERED: Dextrose 4 GM Chewable Tablets PO PRN ×2 (13:11)
[2021-07-06] MEDS ORDERED: D5% in Water 1,000 ML IVC PRN (13:11)
[2021-07-06] MEDS ORDERED: Acetylcysteine IV 3,600 MG in D5% in Water 500 ML IVC ONE (13:37)
[2021-07-06] MEDS ORDERED: WATER IVC ONE ×2 (13:37→18:00)
[2021-07-06] MEDS ORDERED: ACETYLCYSTEINE IVC ONE ×2 (13:37→18:00)
[2021-07-06] MEDS ORDERED: D5 IVC ONE ×2 (13:37→18:00)
[2021-07-06 14:05] LABS: Hematocrit 23.2 % (37.5-50.1); Hemoglobin 7.5 g/dL (12.9-16.9)
[2021-07-06 14:13] LABS: ABG Base Excess 3 mEq/L (-2 to 3); ABG HCO3 31 mEq/L (21-27); ABG Oxygen Saturation 96 % (95-98); ABG PCO2 77 mmHg (35-45); ABG PH 7.22 pH Units (7.32-7.45); ABG PO2 101 mmHg (85-104); ABG TCO2 34 mEq/L (20-26); Blood Gas VT 500 cc
[2021-07-06 14:13] LABS: Prothrombin Time 22.3 Seconds (9.4-12.1)
[2021-07-06] MEDS ORDERED: MethylPREDNISolone 40 MG/ML VIAL IVP SCH (16:00)
[2021-07-06] MEDS ORDERED: Artificial Tears SOLN 15 ML BOTTLE BOTH EYES PRN (16:11)
[2021-07-06] MEDS: FentaNYL (PF) 1,000 MCG/100 ML IV.SOLN IVC SCH (16:44)
[2021-07-06 17:45] LABS: ABG Base Excess 5 mEq/L (-2 to 3); ABG HCO3 30 mEq/L (21-27); ABG Oxygen Saturation 97 % (95-98); ABG PCO2 50 mmHg (35-45); ABG PH 7.39 pH Units (7.32-7.45); ABG PO2 92 mmHg (85-104); ABG TCO2 32 mEq/L (20-26); Blood Gas Modality ASSIST CONTROL; Blood Gas VT 400 cc
[2021-07-06] MEDS: Insulin LISPRO 300 UNITS/3 ML VIAL SUBQ SCH ×2 (18:01→23:41)
[2021-07-06] MEDS ORDERED: Lidocaine -MPF 2% 5 ML VIAL SQ ONE (18:41)
[2021-07-06] MEDS ORDERED: *HR* Succinylcholine 200 MG/10 ML VIAL IVP ONE (18:41)
[2021-07-06] MEDS ORDERED: *HR* Midazolam HCl 5 MG/5 ML VIAL IVP ONE (18:41)
[2021-07-06] MEDS: Artificial Tears SOLN 15 ML BOTTLE BOTH EYES SCH ×2 (21:14→23:40)
[2021-07-06] MEDS: Chlorhexidine Rinse 15 ML MOUTHWASH MM SCH (21:20)
[2021-07-07] MEDS: Albumin 25% 25gram/100mL 25 GM/100 ML IV.SOLN IVPB SCH ×2 (00:17→07:48)
[2021-07-07] MEDS: FentaNYL (PF) 1,000 MCG/100 ML IV.SOLN IVC SCH ×3 (02:00→21:45)
[2021-07-07 04:15] LABS: VBG Ionized Calcium 0.93 mmol/L (1.15-1.35)
[2021-07-07] MEDS: Artificial Tears SOLN 15 ML BOTTLE BOTH EYES SCH ×6 (04:17→23:46)
[2021-07-07 04:45] LABS: Eosinophils # 0.1 K/mcL (0.0-0.6); Hematocrit 19.5 % (37.5-50.1); Hemoglobin 6.6 g/dL (12.9-16.9); Lymphocytes # 0.6 K/mcL (0.6-4.6); Lymphocytes % 11.5 %; Mean Corpuscular HGB Conc 33.8 g/dL (31.6-35.5); Mean Corpuscular Hemoglobin 29.5 pg (28.0-33.3); Mean Platelet Volume 11.7 fL (9.4-12.4); Monocytes # 0.3 K/mcL (0.0-1.3); Monocytes % 5.7 %; Red Blood Count 2.24 M/mcL (4.19-5.50); Red Cell Distribution Width 17.2 % (11.5-14.5); Segmented Neutrophils % 79.8 %; White Blood Count 5.1 K/mcL (4.3-11.1)
[2021-07-07 04:46] LABS: Mean Corpuscular Volume 87.1 fL (83.0-100.0); Neutrophils # 4.1 K/mcL (1.6-8.9); Platelet Count 99 K/mcL (140-400)
[2021-07-07 04:48] LABS: ABG Base Excess 2 mEq/L (-2 to 3); ABG HCO3 26 mEq/L (21-27); ABG Oxygen Saturation 99 % (95-98); ABG PCO2 40 mmHg (35-45); ABG PH 7.43 pH Units (7.32-7.45); ABG PO2 111 mmHg (85-104); ABG TCO2 28 mEq/L (20-26); Blood Gas Modality ASSIST CONTROL; Blood Gas VT 400 cc
[2021-07-07] MEDS: *HR* Heparin 5,000 UNIT/ML VIAL SQ SCH (04:58)
[2021-07-07] MEDS: Doxycycline 100 MG in 0.9 % Sodium Chloride Mini Bag 100 ML IVPB SCH ×2 (05:00→18:37)
[2021-07-07] MEDS: Insulin LISPRO 300 UNITS/3 ML VIAL SUBQ SCH ×4 (05:05→23:50)
[2021-07-07 05:15] LABS: Calcium 8.8 mg/dL (8.6-10.3); Magnesium 1.8 mg/dL (1.6-2.6); Phosphorous 4.5 mg/dL (2.7-4.5); Potassium 3.9 mEq/L (3.5-5.1)
[2021-07-07] MEDS: *HR* Dextrose 50 % in Water (Syg) 50 ML SYRINGE IVP PRN (05:29)
[2021-07-07] MEDS ORDERED: 0.9 % Sodium Chloride 250 ML IVC SCH (07:00)
[2021-07-07] MEDS: Budesonide/Formoterol 160/4.5 1 PUFF INH IH SCH ×2 (07:24→19:52)
[2021-07-07] MEDS: Aspirin Enteric Coated 81 MG Tablet PO SCH (07:25)
[2021-07-07] MEDS: Metoprolol XL (24 HR) Succ 50 MG TAB.ER.24H PO SCH (07:26)
[2021-07-07] MEDS: Chlorhexidine Rinse 15 ML MOUTHWASH MM SCH ×2 (07:49→20:52)
[2021-07-07] MEDS: Levothyroxine Sodium 100 MCG VIAL IVP SCH (07:49)
[2021-07-07] MEDS: Pantoprazole 40 MG VIAL IVP SCH (07:50)
[2021-07-07] MEDS: Piperacillin/Tazobactam 3.375 GM in 0.9 % Sodium Chloride Mini Bag 100 ML IVPB SCH ×2 (07:50→20:57)
[2021-07-07] MEDS ORDERED: Bumetanide 1 MG/4 ML VIAL IVP SCH (09:00)
[2021-07-07] MEDS ORDERED: Potassium Phosphate 44 MEQ in 0.9 % Sodium Chloride 250 ML IVPB PRN (12:21)
[2021-07-07] MEDS: Calcium Gluconate 1gm/50mL 1 GM/50 ML BAG IVPB PRN (12:45)
[2021-07-07] MEDS: Aspirin 81 MG TAB.CHEW PO SCH (14:05)
[2021-07-07 14:47] LABS: Hematocrit 23.5 % (37.5-50.1); Hemoglobin 7.9 g/dL (12.9-16.9); Mean Corpuscular HGB Conc 33.6 g/dL (31.6-35.5); Mean Corpuscular Hemoglobin 29.5 pg (28.0-33.3); Mean Corpuscular Volume 87.7 fL (83.0-100.0); Mean Platelet Volume 11.3 fL (9.4-12.4); Monocytes # 0.4 K/mcL (0.0-1.3); Nucleated Red Blood Cells 0.3 /100 WBC (0); Platelet Count 102 K/mcL (140-400); Red Blood Count 2.68 M/mcL (4.19-5.50); Red Cell Distribution Width 17.1 % (11.5-14.5); White Blood Count 6.5 K/mcL (4.3-11.1)
[2021-07-07 15:12] LABS: Source of Body Fluid LLL BAL
[2021-07-07 15:21] LABS: Lymphocytes # 0.7 K/mcL (0.6-4.6); Neutrophils # 5.5 K/mcL (1.6-8.9); Platelet Estimate Slight Decrease (Normal)
[2021-07-07 18:43] LABS: VBG Ionized Calcium 1.03 mmol/L (1.15-1.35)
[2021-07-07 19:02] LABS: Magnesium 2.1 mg/dL (1.6-2.6); Potassium 3.7 mEq/L (3.5-5.1)
[2021-07-07 20:26] LABS: Appearance of Body Fluid Cloudy (Clear); Volume of Body Fluid 20 mL
[2021-07-08] MEDS: Artificial Tears SOLN 15 ML BOTTLE BOTH EYES SCH ×6 (03:18→23:52)
[2021-07-08 03:45] LABS: ABG Base Excess 4 mEq/L (-2 to 3); ABG HCO3 30 mEq/L (21-27); ABG Oxygen Saturation 95 % (95-98); ABG PCO2 56 mmHg (35-45); ABG PH 7.34 pH Units (7.32-7.45); ABG PO2 85 mmHg (85-104); ABG TCO2 32 mEq/L (20-26); Blood Gas Modality ASSIST CONTROL; Blood Gas VT 400 cc
[2021-07-08 04:14] LABS: Basophils % 0.3 %; Eosinophils # 0.2 K/mcL (0.0-0.6); Eosinophils % 3.1 %; Hematocrit 24.3 % (37.5-50.1); Hemoglobin 8.2 g/dL (12.9-16.9); Immature Platelets 6.6 % (1.1-6.1); Lymphocytes # 0.7 K/mcL (0.6-4.6); Lymphocytes % 10.7 %; Mean Corpuscular HGB Conc 33.7 g/dL (31.6-35.5); Mean Corpuscular Hemoglobin 29.5 pg (28.0-33.3); Mean Corpuscular Volume 87.4 fL (83.0-100.0); Mean Platelet Volume 11.5 fL (9.4-12.4); Monocytes # 0.4 K/mcL (0.0-1.3); Monocytes % 5.7 %; Neutrophils # 5.4 K/mcL (1.6-8.9); Nucleated Red Blood Cells 0.3 /100 WBC (0); Platelet Count 102 K/mcL (140-400); Red Blood Count 2.78 M/mcL (4.19-5.50); Red Cell Distribution Width 17.2 % (11.5-14.5); Segmented Neutrophils % 79.2 %; White Blood Count 6.8 K/mcL (4.3-11.1)
[2021-07-08 04:32] LABS: Calcium 9.3 mg/dL (8.6-10.3); Magnesium 2.2 mg/dL (1.6-2.6); Potassium 3.8 mEq/L (3.5-5.1)
[2021-07-08] MEDS ORDERED: Potassium Chloride Elixir 20 MEQ/15 ML UDC GTUBE ONE (05:21)
[2021-07-08] MEDS: Insulin LISPRO 300 UNITS/3 ML VIAL SUBQ SCH ×4 (05:34→23:53)
[2021-07-08] MEDS: Doxycycline 100 MG in 0.9 % Sodium Chloride Mini Bag 100 ML IVPB SCH ×2 (05:35→17:30)
[2021-07-08 05:43] LABS: VBG Ionized Calcium 1.02 mmol/L (1.15-1.35)
[2021-07-08] MEDS: Calcium Gluconate 1gm/50mL 1 GM/50 ML BAG IVPB PRN (06:20)
[2021-07-08] MEDS: Chlorhexidine Rinse 15 ML MOUTHWASH MM SCH ×2 (07:29→21:36)
[2021-07-08] MEDS: Piperacillin/Tazobactam 3.375 GM in 0.9 % Sodium Chloride Mini Bag 100 ML IVPB SCH ×2 (07:29→21:39)
[2021-07-08] MEDS: Pantoprazole 40 MG VIAL IVP SCH (07:30)
[2021-07-08] MEDS: Levothyroxine Sodium 100 MCG VIAL IVP SCH (07:30)
[2021-07-08] MEDS: Aspirin 81 MG TAB.CHEW PO SCH (07:31)
[2021-07-08] MEDS: Budesonide/Formoterol 160/4.5 1 PUFF INH IH SCH ×2 (07:38→19:52)
[2021-07-08 09:32] LABS: INR 1.6; Prothrombin Time 17.7 Seconds (9.4-12.1)
[2021-07-08 09:34] LABS: Albumin 3.4 g/dL (3.5-5.7); Albumin/Globulin Ratio 1.5 (1.1-2.2); Globulin 2.3 g/dL (2.4-3.5); Total Protein 5.7 g/dL (6.4-8.9)
[2021-07-08 09:35] LABS: Activated Partial Thrombo Time 29.4 Seconds (26.0-36.0)
[2021-07-08] MEDS: FentaNYL (PF) 1,000 MCG/100 ML IV.SOLN IVC SCH (11:02)
[2021-07-08] MEDS ORDERED: *HR* Heparin 5,000 UNIT/ML VIAL ONE (11:17)
[2021-07-08] MEDS ORDERED: *HR* Heparin 10,000 UNIT/10 ML VIAL IV PRN (11:31)
[2021-07-08] MEDS ORDERED: 0.9 % Sodium Chloride 250 ML IVC PRN (11:31)
[2021-07-08] MEDS ORDERED: 0.9 % Sodium Chloride 1,000 ML PRIME SCH (11:45)
[2021-07-08 12:36] LABS: VBG Ionized Calcium 1.11 mmol/L (1.15-1.35)
[2021-07-08 13:05] LABS: Calcium 9.5 mg/dL (8.6-10.3); Potassium 4.3 mEq/L (3.5-5.1)
[2021-07-08] MEDS: Norepinephrine 4 MG/254 ML IV.SOLN IVC SCH (14:08)
[2021-07-09] MEDS: FentaNYL (PF) 1,000 MCG/100 ML IV.SOLN IVC SCH ×2 (00:45→17:45)
[2021-07-09] MEDS: Artificial Tears SOLN 15 ML BOTTLE BOTH EYES SCH ×5 (03:47→20:31)
[2021-07-09 04:16] LABS: VBG Ionized Calcium 1.21 mmol/L (1.15-1.35)
[2021-07-09 04:36] LABS: Basophils % 0.1 %; Eosinophils # 0.2 K/mcL (0.0-0.6); Eosinophils % 3.2 %; Hematocrit 24.1 % (37.5-50.1); Hemoglobin 7.9 g/dL (12.9-16.9); Immature Granulocytes % 1.9 % (0-4); Lymphocytes # 0.7 K/mcL (0.6-4.6); Lymphocytes % 10.3 %; Mean Corpuscular HGB Conc 32.8 g/dL (31.6-35.5); Mean Corpuscular Volume 88.6 fL (83.0-100.0); Mean Platelet Volume 11.6 fL (9.4-12.4); Monocytes # 0.3 K/mcL (0.0-1.3); Monocytes % 4.6 %; Neutrophils # 5.4 K/mcL (1.6-8.9); Platelet Count 101 K/mcL (140-400); Red Blood Count 2.72 M/mcL (4.19-5.50); Red Cell Distribution Width 17.9 % (11.5-14.5); Segmented Neutrophils % 79.9 %; White Blood Count 6.8 K/mcL (4.3-11.1)
[2021-07-09 04:44] LABS: INR 1.5
[2021-07-09 04:56] LABS: Albumin 3.1 g/dL (3.5-5.7); Albumin/Globulin Ratio 1.1 (1.1-2.2); Bilirubin,Direct 2.6 mg/dL (0.0-0.2); Bilirubin,Indirect 0.9 mg/dL (0.0-1.0); Bilirubin,Total 3.5 mg/dL (0.3-1.0); Calcium 9.5 mg/dL (8.6-10.3); Globulin 2.7 g/dL (2.4-3.5); Magnesium 2.1 mg/dL (1.6-2.6); Phosphorous 4.2 mg/dL (2.7-4.5); Potassium 4.3 mEq/L (3.5-5.1); Total Protein 5.8 g/dL (6.4-8.9)
[2021-07-09 05:04] LABS: ABG Base Excess 3 mEq/L (-2 to 3); ABG HCO3 31 mEq/L (21-27); ABG Oxygen Saturation 98 % (95-98); ABG PCO2 61 mmHg (35-45); ABG PH 7.32 pH Units (7.32-7.45); ABG PO2 110 mmHg (85-104); ABG TCO2 33 mEq/L (20-26); Blood Gas Modality ASSIST CONTROL; Blood Gas VT 400 cc
[2021-07-09] MEDS: Doxycycline 100 MG in 0.9 % Sodium Chloride Mini Bag 100 ML IVPB SCH ×2 (05:53→17:45)
[2021-07-09] MEDS: Insulin LISPRO 300 UNITS/3 ML VIAL SUBQ SCH ×3 (05:53→17:45)
[2021-07-09] MEDS: Budesonide/Formoterol 160/4.5 1 PUFF INH IH SCH ×2 (07:34→20:09)
[2021-07-09] MEDS: Chlorhexidine Rinse 15 ML MOUTHWASH MM SCH ×2 (08:35→20:31)
[2021-07-09] MEDS: Norepinephrine 4 MG/254 ML IV.SOLN IVC SCH (08:35)
[2021-07-09] MEDS: Piperacillin/Tazobactam 3.375 GM in 0.9 % Sodium Chloride Mini Bag 100 ML IVPB SCH ×2 (08:36→20:31)
[2021-07-09] MEDS: Levothyroxine Sodium 100 MCG VIAL IVP SCH (08:36)
[2021-07-09] MEDS: Pantoprazole 40 MG VIAL IVP SCH (08:36)
[2021-07-09] MEDS: Aspirin 81 MG TAB.CHEW PO SCH (08:37)
[2021-07-09] MEDS ORDERED: *HR* Heparin 10,000 UNIT/10 ML VIAL IV PRN (10:54)
[2021-07-09] MEDS ORDERED: 0.9 % Sodium Chloride 250 ML IVC PRN (10:54)
[2021-07-10] MEDS: Artificial Tears SOLN 15 ML BOTTLE BOTH EYES SCH ×7 (00:51→23:34)
[2021-07-10] MEDS: Insulin LISPRO 300 UNITS/3 ML VIAL SUBQ SCH ×5 (02:24→23:38)
[2021-07-10 03:46] LABS: Basophils % 0.3 %; Hemoglobin 7.8 g/dL (12.9-16.9)
[2021-07-10 03:48] LABS: Eosinophils # 0.4 K/mcL (0.0-0.6); Eosinophils % 5.2 %; Hematocrit 24.5 % (37.5-50.1); Immature Granulocytes % 1.8 % (0-4); Immature Platelets 7.5 % (1.1-6.1); Lymphocytes % 14.6 %; Mean Corpuscular HGB Conc 31.8 g/dL (31.6-35.5); Mean Corpuscular Volume 91.1 fL (83.0-100.0); Monocytes # 0.4 K/mcL (0.0-1.3); Monocytes % 5.4 %; Neutrophils # 4.9 K/mcL (1.6-8.9); Red Blood Count 2.69 M/mcL (4.19-5.50); Red Cell Distribution Width 18.2 % (11.5-14.5); Segmented Neutrophils % 72.7 %; White Blood Count 6.7 K/mcL (4.3-11.1)
[2021-07-10 03:48] LABS: VBG Ionized Calcium 1.25 mmol/L (1.15-1.35)
[2021-07-10 03:56] LABS: Platelet Count 84 K/mcL (140-400)
[2021-07-10 03:58] LABS: INR 1.6; Prothrombin Time 17.4 Seconds (9.4-12.1)
[2021-07-10 04:07] LABS: Albumin 3.1 g/dL (3.5-5.7); Albumin/Globulin Ratio 1.1 (1.1-2.2); Calcium 9.3 mg/dL (8.6-10.3); Globulin 2.8 g/dL (2.4-3.5); Magnesium 2.1 mg/dL (1.6-2.6); Potassium 4.1 mEq/L (3.5-5.1); Total Protein 5.9 g/dL (6.4-8.9)
[2021-07-10 04:47] LABS: ABG Base Excess 4 mEq/L (-2 to 3); ABG HCO3 31 mEq/L (21-27); ABG Oxygen Saturation 94 % (95-98); ABG PCO2 61 mmHg (35-45); ABG PH 7.31 pH Units (7.32-7.45); ABG PO2 81 mmHg (85-104); ABG TCO2 33 mEq/L (20-26); Blood Gas Modality ASSIST CONTROL; Blood Gas VT 400 cc
[2021-07-10] MEDS: Pantoprazole 40 MG VIAL IVP SCH (07:04)
[2021-07-10] MEDS: Chlorhexidine Rinse 15 ML MOUTHWASH MM SCH ×2 (07:05→19:25)
[2021-07-10] MEDS: Levothyroxine Sodium 100 MCG VIAL IVP SCH (07:05)
[2021-07-10] MEDS: Aspirin 81 MG TAB.CHEW PO SCH (07:05)
[2021-07-10] MEDS: Budesonide/Formoterol 160/4.5 1 PUFF INH IH SCH ×2 (07:17→20:11)
[2021-07-10] MEDS ORDERED: 0.9 % Sodium Chloride 250 ML IVC PRN (08:41)
[2021-07-10] MEDS ORDERED: Albumin 25% 25gram/100mL 25 GM/100 ML IV.SOLN IVPB PRN (08:41)
[2021-07-10] MEDS ORDERED: *HR* Heparin 10,000 UNIT/10 ML VIAL IV PRN (08:41)
[2021-07-10] MEDS: FentaNYL (PF) 1,000 MCG/100 ML IV.SOLN IVC SCH (11:44)
[2021-07-10] MEDS ORDERED: Dexmedetomidine HCl 400 MCG/100 ML MLS IVC SCH (17:15)
[2021-07-11] MEDS: Artificial Tears SOLN 15 ML BOTTLE BOTH EYES SCH ×3 (03:49→12:04)
[2021-07-11 03:58] LABS: Basophils % 0.3 %; Hemoglobin 8.2 g/dL (12.9-16.9); Immature Granulocytes % 1.8 % (0-4)
[2021-07-11 03:59] LABS: Eosinophils # 0.5 K/mcL (0.0-0.6); Eosinophils % 6.7 %; Hematocrit 26.6 % (37.5-50.1); Immature Platelets 6.7 % (1.1-6.1); Lymphocytes # 0.8 K/mcL (0.6-4.6); Lymphocytes % 11.6 %; Mean Corpuscular HGB Conc 30.8 g/dL (31.6-35.5); Mean Corpuscular Hemoglobin 29.3 pg (28.0-33.3); Mean Platelet Volume 10.8 fL (9.4-12.4); Monocytes # 0.2 K/mcL (0.0-1.3); Monocytes % 3.4 %; Neutrophils # 5.4 K/mcL (1.6-8.9); Red Cell Distribution Width 18.4 % (11.5-14.5); Segmented Neutrophils % 76.2 %; White Blood Count 7.1 K/mcL (4.3-11.1)
[2021-07-11 04:02] LABS: Platelet Count 69 K/mcL (140-400)
[2021-07-11 04:07] LABS: INR 1.5; Prothrombin Time 17.2 Seconds (9.4-12.1)
[2021-07-11 04:10] LABS: VBG Ionized Calcium 1.31 mmol/L (1.15-1.35)
[2021-07-11 04:11] LABS: Calcium 9.7 mg/dL (8.6-10.3); Globulin 3.1 g/dL (2.4-3.5); Phosphorous 4.1 mg/dL (2.7-4.5); Potassium 4.3 mEq/L (3.5-5.1); Total Protein 6.1 g/dL (6.4-8.9)
[2021-07-11] MEDS: Insulin LISPRO 300 UNITS/3 ML VIAL SUBQ SCH ×3 (05:41→17:56)
[2021-07-11] MEDS: Budesonide/Formoterol 160/4.5 1 PUFF INH IH SCH ×2 (07:15→20:00)
[2021-07-11] MEDS: Levothyroxine Sodium 100 MCG VIAL IVP SCH (08:16)
[2021-07-11] MEDS: Chlorhexidine Rinse 15 ML MOUTHWASH MM SCH ×2 (08:16→22:10)
[2021-07-11] MEDS: Pantoprazole 40 MG VIAL IVP SCH (08:16)
[2021-07-11] MEDS: Aspirin 81 MG TAB.CHEW PO SCH (08:16)
[2021-07-12] MEDS: Insulin LISPRO 300 UNITS/3 ML VIAL SUBQ SCH ×4 (00:58→18:49)
[2021-07-12 06:46] LABS: VBG Ionized Calcium 1.29 mmol/L (1.15-1.35)
[2021-07-12] MEDS: Norepinephrine 4 MG/254 ML IV.SOLN IVC SCH (07:22)
[2021-07-12 07:42] LABS: Basophils % 0.2 %; Eosinophils # 0.4 K/mcL (0.0-0.6); Eosinophils % 4.4 %; Hematocrit 26.1 % (37.5-50.1); Hemoglobin 8.1 g/dL (12.9-16.9); Immature Granulocytes % 1.5 % (0-4); Lymphocytes # 0.8 K/mcL (0.6-4.6); Lymphocytes % 9.5 %; Mean Corpuscular Hemoglobin 29.1 pg (28.0-33.3); Mean Corpuscular Volume 93.9 fL (83.0-100.0); Mean Platelet Volume 10.3 fL (9.4-12.4); Monocytes # 0.4 K/mcL (0.0-1.3); Monocytes % 4.3 %; Neutrophils # 6.8 K/mcL (1.6-8.9); Platelet Count 112 K/mcL (140-400); Red Blood Count 2.78 M/mcL (4.19-5.50); Red Cell Distribution Width 17.7 % (11.5-14.5); Segmented Neutrophils % 80.1 %; White Blood Count 8.4 K/mcL (4.3-11.1)
[2021-07-12 07:57] LABS: INR 1.4; Prothrombin Time 15.3 Seconds (9.4-12.1)
[2021-07-12 08:31] LABS: Albumin 3.2 g/dL (3.5-5.7); Bilirubin,Direct 1.5 mg/dL (0.0-0.2); Bilirubin,Indirect 0.9 mg/dL (0.0-1.0); Bilirubin,Total 2.4 mg/dL (0.3-1.0); Globulin 3.2 g/dL (2.4-3.5); Magnesium 2.2 mg/dL (1.6-2.6); Potassium 4.5 mEq/L (3.5-5.1); Total Protein 6.4 g/dL (6.4-8.9)
[2021-07-12] MEDS ORDERED: 0.9 % Sodium Chloride 250 ML IVC PRN (08:36)
[2021-07-12] MEDS: Budesonide/Formoterol 160/4.5 1 PUFF INH IH SCH ×2 (10:42→20:26)
[2021-07-12] MEDS: Aspirin 81 MG TAB.CHEW PO SCH (18:23)
[2021-07-12] MEDS: Chlorhexidine Rinse 15 ML MOUTHWASH MM SCH ×2 (18:23→20:14)
[2021-07-12] MEDS: Metoprolol XL (24 HR) Succ 25 MG TAB.ER.24H PO SCH (18:40)
[2021-07-12] MEDS: Pantoprazole 40 MG VIAL IVP SCH (18:41)
[2021-07-12] MEDS: Levothyroxine Sodium 100 MCG VIAL IVP SCH (18:49)
[2021-07-13] MEDS: Insulin LISPRO 300 UNITS/3 ML VIAL SUBQ SCH ×5 (00:04→23:41)
[2021-07-13 02:26] LABS: Basophils % 0.1 %; Eosinophils # 0.1 K/mcL (0.0-0.6); Eosinophils % 1.2 %; Hematocrit 25.9 % (37.5-50.1); Hemoglobin 7.9 g/dL (12.9-16.9); Immature Granulocytes % 1.2 % (0-4); Lymphocytes # 0.5 K/mcL (0.6-4.6); Lymphocytes % 6.4 %; Mean Corpuscular HGB Conc 30.5 g/dL (31.6-35.5); Mean Corpuscular Hemoglobin 28.9 pg (28.0-33.3); Mean Corpuscular Volume 94.9 fL (83.0-100.0); Mean Platelet Volume 10.8 fL (9.4-12.4); Monocytes # 0.2 K/mcL (0.0-1.3); Monocytes % 2.5 %; Neutrophils # 7.5 K/mcL (1.6-8.9); Platelet Count 118 K/mcL (140-400); Red Blood Count 2.73 M/mcL (4.19-5.50); Red Cell Distribution Width 17.9 % (11.5-14.5); Segmented Neutrophils % 88.6 %; White Blood Count 8.4 K/mcL (4.3-11.1)
[2021-07-13 02:40] LABS: INR 1.4; Prothrombin Time 15.4 Seconds (9.4-12.1)
[2021-07-13 02:44] LABS: Albumin/Globulin Ratio 0.9 (1.1-2.2); Bilirubin,Direct 1.2 mg/dL (0.0-0.2); Bilirubin,Indirect 0.8 mg/dL (0.0-1.0); Calcium 9.1 mg/dL (8.6-10.3); Globulin 3.2 g/dL (2.4-3.5); Magnesium 1.9 mg/dL (1.6-2.6); Phosphorous 4.7 mg/dL (2.7-4.5); Potassium 4.1 mEq/L (3.5-5.1); Total Protein 6.2 g/dL (6.4-8.9)
[2021-07-13] MEDS: Budesonide/Formoterol 160/4.5 1 PUFF INH IH SCH ×2 (07:57→20:09)
[2021-07-13] MEDS: Chlorhexidine Rinse 15 ML MOUTHWASH MM SCH (09:29)
[2021-07-13] MEDS: Aspirin 81 MG TAB.CHEW PO SCH (09:29)
[2021-07-13] MEDS: Metoprolol XL (24 HR) Succ 25 MG TAB.ER.24H PO SCH (09:29)
[2021-07-13] MEDS: Pantoprazole 40 MG VIAL IVP SCH (09:29)
[2021-07-13] MEDS: Levothyroxine Sodium 100 MCG VIAL IVP SCH (09:30)
[2021-07-13] MEDS: Ipratropium/Albuterol Neb 3 ML IH PRN (20:07)
[2021-07-14] MEDS: Insulin LISPRO 300 UNITS/3 ML VIAL SUBQ SCH ×4 (07:09→19:13)
[2021-07-14] MEDS: Ipratropium/Albuterol Neb 3 ML IH PRN ×2 (07:41→22:42)
[2021-07-14] MEDS: Budesonide/Formoterol 160/4.5 1 PUFF INH IH SCH ×2 (07:41→22:42)
[2021-07-14] MEDS: Levothyroxine Sodium 100 MCG VIAL IVP SCH (08:08)
[2021-07-14] MEDS: Metoprolol XL (24 HR) Succ 25 MG TAB.ER.24H PO SCH (08:08)
[2021-07-14] MEDS: Pantoprazole 40 MG VIAL IVP SCH (08:09)
[2021-07-14] MEDS: Aspirin 81 MG TAB.CHEW PO SCH (08:09)
[2021-07-14 08:51] LABS: Calcium 9.4 mg/dL (8.6-10.3); Potassium 4.8 mEq/L (3.5-5.1)
[2021-07-15 02:27] LABS: Hematocrit 26.4 % (37.5-50.1); Hemoglobin 7.9 g/dL (12.9-16.9); Mean Corpuscular HGB Conc 29.9 g/dL (31.6-35.5); Mean Corpuscular Hemoglobin 28.8 pg (28.0-33.3); Mean Corpuscular Volume 96.4 fL (83.0-100.0); Mean Platelet Volume 9.8 fL (9.4-12.4); Platelet Count 168 K/mcL (140-400); Red Blood Count 2.74 M/mcL (4.19-5.50); Red Cell Distribution Width 17.2 % (11.5-14.5); White Blood Count 6.6 K/mcL (4.3-11.1)
[2021-07-15 03:02] LABS: Calcium 9.4 mg/dL (8.6-10.3); Potassium 5.2 mEq/L (3.5-5.1)
[2021-07-15] MEDS: Insulin LISPRO 300 UNITS/3 ML VIAL SUBQ SCH ×4 (07:20→20:37)
[2021-07-15] MEDS: Ipratropium/Albuterol Neb 3 ML IH PRN ×5 (07:30→23:36)
[2021-07-15] MEDS: Budesonide/Formoterol 160/4.5 1 PUFF INH IH SCH ×2 (07:30→20:10)
[2021-07-15] MEDS ORDERED: 0.9 % Sodium Chloride 1,000 ML PRIME SCH (07:30)
[2021-07-15] MEDS ORDERED: 0.9 % Sodium Chloride 250 ML IVC PRN (07:30)
[2021-07-15] MEDS: Metoprolol XL (24 HR) Succ 25 MG TAB.ER.24H PO SCH (07:52)
[2021-07-15] MEDS: Pantoprazole 40 MG VIAL IVP SCH (07:52)
[2021-07-15] MEDS: Aspirin 81 MG TAB.CHEW PO SCH (07:52)
[2021-07-15] MEDS ORDERED: *HR* Heparin 10,000 UNIT/10 ML VIAL IV PRN (08:57)
[2021-07-16 04:52] LABS: Basophils % 0.3 %; Eosinophils % 0.3 %; Hematocrit 26.5 % (37.5-50.1); Hemoglobin 7.9 g/dL (12.9-16.9); Immature Granulocytes % 0.9 % (0-4); Lymphocytes # 0.4 K/mcL (0.6-4.6); Lymphocytes % 6.3 %; Mean Corpuscular HGB Conc 29.8 g/dL (31.6-35.5); Mean Corpuscular Volume 97.4 fL (83.0-100.0); Mean Platelet Volume 10.3 fL (9.4-12.4); Monocytes # 0.3 K/mcL (0.0-1.3); Monocytes % 3.7 %; Neutrophils # 5.9 K/mcL (1.6-8.9); Platelet Count 161 K/mcL (140-400); Red Blood Count 2.72 M/mcL (4.19-5.50); Red Cell Distribution Width 17.3 % (11.5-14.5); Segmented Neutrophils % 88.5 %; White Blood Count 6.7 K/mcL (4.3-11.1)
[2021-07-16 04:57] LABS: INR 1.6; Prothrombin Time 17.3 Seconds (9.4-12.1)
[2021-07-16 05:15] LABS: Albumin 3.5 g/dL (3.5-5.7); Calcium 8.9 mg/dL (8.6-10.3); Phosphorous 6.8 mg/dL (2.7-4.5); Potassium 4.4 mEq/L (3.5-5.1)
[2021-07-16] MEDS: Insulin LISPRO 300 UNITS/3 ML VIAL SUBQ SCH ×4 (07:08→20:37)
[2021-07-16] MEDS: Pantoprazole 40 MG VIAL IVP SCH (09:27)
[2021-07-16] MEDS: Metoprolol XL (24 HR) Succ 25 MG TAB.ER.24H PO SCH (09:27)
[2021-07-16] MEDS: Aspirin 81 MG TAB.CHEW PO SCH (09:27)
[2021-07-16] MEDS: Ipratropium/Albuterol Neb 3 ML IH PRN ×2 (10:05→21:11)
[2021-07-16] MEDS: Budesonide/Formoterol 160/4.5 1 PUFF INH IH SCH ×2 (10:05→21:08)
[2021-07-16 21:06] LABS: ABG Base Excess -2 mEq/L (-2 to 3); ABG HCO3 29 mEq/L (21-27); ABG Oxygen Saturation 93 % (95-98); ABG PCO2 91 mmHg (35-45); ABG PH 7.11 pH Units (7.32-7.45); ABG PO2 94 mmHg (85-104); ABG TCO2 32 mEq/L (20-26); Blood Gas Modality avaps; Blood Gas VT 500 cc
[2021-07-17 00:32] LABS: ABG Base Excess 1 mEq/L (-2 to 3); ABG HCO3 30 mEq/L (21-27); ABG Oxygen Saturation 97 % (95-98); ABG PCO2 76 mmHg (35-45); ABG PO2 114 mmHg (85-104); ABG TCO2 32 mEq/L (20-26); Blood Gas Modality AVAPS; Blood Gas VT 500 cc
[2021-07-17 03:40] LABS: ABG Base Excess 1 mEq/L (-2 to 3); ABG HCO3 28 mEq/L (21-27); ABG Oxygen Saturation 97 % (95-98); ABG PCO2 60 mmHg (35-45); ABG PH 7.28 pH Units (7.32-7.45); ABG PO2 110 mmHg (85-104); ABG TCO2 30 mEq/L (20-26); Blood Gas Modality BiLevel; Blood Gas VT 500 cc
[2021-07-17 04:31] LABS: Basophils % 0.4 %; Eosinophils # 0.1 K/mcL (0.0-0.6); Eosinophils % 1.8 %; Hematocrit 26.4 % (37.5-50.1); Hemoglobin 7.8 g/dL (12.9-16.9); Immature Granulocytes % 0.7 % (0-4); Lymphocytes # 0.7 K/mcL (0.6-4.6); Lymphocytes % 11.7 %; Mean Corpuscular HGB Conc 29.5 g/dL (31.6-35.5); Mean Corpuscular Hemoglobin 28.9 pg (28.0-33.3); Mean Corpuscular Volume 97.8 fL (83.0-100.0); Mean Platelet Volume 10.3 fL (9.4-12.4); Monocytes # 0.4 K/mcL (0.0-1.3); Monocytes % 7.7 %; Neutrophils # 4.4 K/mcL (1.6-8.9); Platelet Count 207 K/mcL (140-400); Red Cell Distribution Width 17.4 % (11.5-14.5); Segmented Neutrophils % 77.7 %; White Blood Count 5.7 K/mcL (4.3-11.1)
[2021-07-17 04:45] LABS: Calcium 9.2 mg/dL (8.6-10.3); Potassium 5.3 mEq/L (3.5-5.1)
[2021-07-17] MEDS ORDERED: Haloperidol Lactate 5 MG/ML VIAL IVP ONE (06:06)
[2021-07-17] MEDS: *HR* Dextrose 50 % in Water (Syg) 50 ML SYRINGE IVP PRN (06:41)
[2021-07-17] MEDS: Insulin LISPRO 300 UNITS/3 ML VIAL SUBQ SCH ×4 (07:24→20:32)
[2021-07-17] MEDS ORDERED: 0.9 % Sodium Chloride 250 ML IVC PRN (07:26)
[2021-07-17] MEDS ORDERED: Heparin 1,000 UNITS/500 mL 500 ML ONE (08:52)
[2021-07-17] MEDS: Metoprolol XL (24 HR) Succ 25 MG TAB.ER.24H PO SCH (09:05)
[2021-07-17] MEDS: Aspirin 81 MG TAB.CHEW PO SCH (09:05)
[2021-07-17] MEDS: Budesonide/Formoterol 160/4.5 1 PUFF INH IH SCH ×2 (09:35→19:57)
[2021-07-17] MEDS: ceFAZolin 1,000 MG in 0.9 % Sodium Chloride Mini Bag 100 ML IVPB SCH ×2 (09:50→11:34)
[2021-07-17] MEDS ORDERED: *HR* Heparin 5,000 UNIT/ML VIAL ONE (09:52)
[2021-07-17] MEDS: Ipratropium/Albuterol Neb 3 ML IH PRN ×2 (10:22→19:57)
[2021-07-17] MEDS ORDERED: *HR* Heparin 10,000 UNIT/10 ML VIAL IV PRN (12:30)
[2021-07-18 05:39] LABS: Basophils % 0.5 %; Eosinophils % 0.7 %; Hematocrit 25.3 % (37.5-50.1); Hemoglobin 7.6 g/dL (12.9-16.9); Immature Granulocytes % 0.3 % (0-4); Lymphocytes # 0.6 K/mcL (0.6-4.6); Lymphocytes % 10.5 %; Mean Corpuscular Hemoglobin 29.2 pg (28.0-33.3); Mean Corpuscular Volume 97.3 fL (83.0-100.0); Mean Platelet Volume 10.3 fL (9.4-12.4); Monocytes # 0.4 K/mcL (0.0-1.3); Monocytes % 6.3 %; Neutrophils # 4.8 K/mcL (1.6-8.9); Platelet Count 158 K/mcL (140-400); Red Cell Distribution Width 17.8 % (11.5-14.5); Segmented Neutrophils % 81.7 %; White Blood Count 5.9 K/mcL (4.3-11.1)
[2021-07-18 05:50] LABS: Calcium 8.8 mg/dL (8.6-10.3)
[2021-07-18] MEDS: Insulin LISPRO 300 UNITS/3 ML VIAL SUBQ SCH ×4 (07:39→21:24)
[2021-07-18] MEDS: Budesonide/Formoterol 160/4.5 1 PUFF INH IH SCH ×2 (07:42→20:17)
[2021-07-18] MEDS: Metoprolol XL (24 HR) Succ 25 MG TAB.ER.24H PO SCH (08:25)
[2021-07-18] MEDS: Aspirin 81 MG TAB.CHEW PO SCH (08:25)
[2021-07-18] MEDS: Ipratropium/Albuterol Neb 3 ML IH PRN (20:17)
[2021-07-19 01:25] LABS: Basophils % 0.5 %; Eosinophils # 0.3 K/mcL (0.0-0.6); Eosinophils % 5.4 %; Hematocrit 28.1 % (37.5-50.1); Hemoglobin 8.3 g/dL (12.9-16.9); Immature Granulocytes % 0.5 % (0-4); Lymphocytes # 0.9 K/mcL (0.6-4.6); Lymphocytes % 17.1 %; Mean Corpuscular HGB Conc 29.5 g/dL (31.6-35.5); Mean Corpuscular Hemoglobin 29.6 pg (28.0-33.3); Mean Corpuscular Volume 100.4 fL (83.0-100.0); Mean Platelet Volume 10.4 fL (9.4-12.4); Monocytes # 0.5 K/mcL (0.0-1.3); Monocytes % 9.3 %; Neutrophils # 3.7 K/mcL (1.6-8.9); Platelet Count 172 K/mcL (140-400); Red Cell Distribution Width 17.8 % (11.5-14.5); Segmented Neutrophils % 67.2 %; White Blood Count 5.5 K/mcL (4.3-11.1)
[2021-07-19 01:49] LABS: Albumin 3.5 g/dL (3.5-5.7); Albumin/Globulin Ratio 0.9 (1.1-2.2); Bilirubin,Direct 0.8 mg/dL (0.0-0.2); Bilirubin,Indirect 0.7 mg/dL (0.0-1.0); Bilirubin,Total 1.5 mg/dL (0.3-1.0); Calcium 9.1 mg/dL (8.6-10.3); Globulin 3.7 g/dL (2.4-3.5); Phosphorous 7.1 mg/dL (2.7-4.5); Potassium 4.3 mEq/L (3.5-5.1); Total Protein 7.2 g/dL (6.4-8.9)
[2021-07-19] MEDS ORDERED: Scopolamine Patch 1.5 MG PATCH.TD72 TD SCH (02:00)
[2021-07-19] MEDS ORDERED: 0.9 % Sodium Chloride 250 ML IVC PRN (05:44)
[2021-07-19] MEDS: Insulin LISPRO 300 UNITS/3 ML VIAL SUBQ SCH ×4 (07:48→20:55)
[2021-07-19] MEDS: Metoprolol XL (24 HR) Succ 25 MG TAB.ER.24H PO SCH (08:34)
[2021-07-19] MEDS: Aspirin 81 MG TAB.CHEW PO SCH (08:35)
[2021-07-19 09:30] LABS: ABG Base Excess -1 mEq/L (-2 to 3); ABG HCO3 30 mEq/L (21-27); ABG Oxygen Saturation 100 % (95-98); ABG PCO2 91 mmHg (35-45); ABG PH 7.12 pH Units (7.32-7.45); ABG PO2 325 mmHg (85-104); ABG TCO2 33 mEq/L (20-26); Blood Gas VT 450 cc
[2021-07-19] MEDS: Budesonide/Formoterol 160/4.5 1 PUFF INH IH SCH ×2 (10:06→20:17)
[2021-07-19] MEDS: Ipratropium/Albuterol Neb 3 ML IH PRN (10:06)
[2021-07-19 13:47] LABS: ABG Base Excess 0 mEq/L (-2 to 3); ABG HCO3 30 mEq/L (21-27); ABG Oxygen Saturation 97 % (95-98); ABG PCO2 94 mmHg (35-45); ABG PH 7.12 pH Units (7.32-7.45); ABG PO2 126 mmHg (85-104); ABG TCO2 33 mEq/L (20-26); Blood Gas VT 550 cc
[2021-07-19 17:48] LABS: ABG Base Excess 9 mEq/L (-2 to 3); ABG HCO3 37 mEq/L (21-27); ABG Oxygen Saturation 91 % (95-98); ABG PCO2 74 mmHg (35-45); ABG PH 7.31 pH Units (7.32-7.45); ABG PO2 71 mmHg (85-104); ABG TCO2 39 mEq/L (20-26); Blood Gas VT 550 cc
[2021-07-19] MEDS ORDERED: *HR* LORazepam 2 MG/ML VIAL IVP ONE (23:16)
[2021-07-20 03:23] LABS: Basophils % 0.5 %; Eosinophils # 0.1 K/mcL (0.0-0.6); Eosinophils % 2.2 %; Hematocrit 26.2 % (37.5-50.1); Hemoglobin 7.7 g/dL (12.9-16.9); Immature Granulocytes % 0.5 % (0-4); Lymphocytes # 0.7 K/mcL (0.6-4.6); Lymphocytes % 11.2 %; Mean Corpuscular HGB Conc 29.4 g/dL (31.6-35.5); Mean Corpuscular Hemoglobin 28.8 pg (28.0-33.3); Mean Corpuscular Volume 98.1 fL (83.0-100.0); Monocytes # 0.5 K/mcL (0.0-1.3); Monocytes % 7.4 %; Neutrophils # 4.9 K/mcL (1.6-8.9); Platelet Count 134 K/mcL (140-400); Red Blood Count 2.67 M/mcL (4.19-5.50); Red Cell Distribution Width 17.8 % (11.5-14.5); Segmented Neutrophils % 78.2 %; White Blood Count 6.3 K/mcL (4.3-11.1)
[2021-07-20 03:35] LABS: Calcium 8.8 mg/dL (8.6-10.3); Potassium 3.9 mEq/L (3.5-5.1)
[2021-07-20] MEDS: Ipratropium/Albuterol Neb 3 ML IH SCH ×6 (04:12→23:44)
[2021-07-20 04:54] LABS: ABG Base Excess 5 mEq/L (-2 to 3); ABG HCO3 34 mEq/L (21-27); ABG Oxygen Saturation 89 % (95-98); ABG PCO2 78 mmHg (35-45); ABG PH 7.25 pH Units (7.32-7.45); ABG PO2 69 mmHg (85-104); ABG TCO2 36 mEq/L (20-26)
[2021-07-20] MEDS: Budesonide/Formoterol 160/4.5 1 PUFF INH IH SCH ×2 (07:31→20:25)
[2021-07-20] MEDS: *HR* Dextrose 50 % in Water (Syg) 50 ML SYRINGE IVP PRN (07:55)
[2021-07-20] MEDS: Insulin LISPRO 300 UNITS/3 ML VIAL SUBQ SCH ×4 (08:40→22:44)
[2021-07-20] MEDS: Aspirin 81 MG TAB.CHEW PO SCH (08:41)
[2021-07-20] MEDS: Metoprolol XL (24 HR) Succ 25 MG TAB.ER.24H PO SCH (08:41)
[2021-07-20] MEDS ORDERED: methylPREDNISolone 125 MG/2 ML VIAL IVP ONE (08:41)
[2021-07-20] MEDS: MethylPREDNISolone 40 MG/ML VIAL IVP SCH (18:14)
[2021-07-21] MEDS ORDERED: *HR* LORazepam 2 MG/ML VIAL IVP ONE (00:12)
[2021-07-21] MEDS: MethylPREDNISolone 40 MG/ML VIAL IVP SCH ×4 (00:50→23:19)
[2021-07-21] MEDS: Ipratropium/Albuterol Neb 3 ML IH SCH ×6 (04:02→23:58)
[2021-07-21] MEDS: Insulin LISPRO 300 UNITS/3 ML VIAL SUBQ SCH ×4 (07:31→20:36)
[2021-07-21] MEDS: Aspirin 81 MG TAB.CHEW PO SCH (09:00)
[2021-07-21] MEDS: Metoprolol XL (24 HR) Succ 25 MG TAB.ER.24H PO SCH (09:00)
[2021-07-21] MEDS: Budesonide/Formoterol 160/4.5 1 PUFF INH IH SCH ×2 (10:13→20:11)
[2021-07-22] MEDS: Ipratropium/Albuterol Neb 3 ML IH SCH ×5 (04:38→19:48)
[2021-07-22 05:05] LABS: Hemoglobin 7.6 g/dL (12.9-16.9); Mean Corpuscular Volume 96.1 fL (83.0-100.0); Mean Platelet Volume 10.3 fL (9.4-12.4)
[2021-07-22 05:08] LABS: Hematocrit 24.8 % (37.5-50.1); Immature Granulocytes % 0.6 % (0-4); Immature Platelets 5.8 % (1.1-6.1); Lymphocytes # 0.2 K/mcL (0.6-4.6); Lymphocytes % 6.7 %; Mean Corpuscular HGB Conc 30.6 g/dL (31.6-35.5); Mean Corpuscular Hemoglobin 29.5 pg (28.0-33.3); Monocytes # 0.2 K/mcL (0.0-1.3); Monocytes % 5.3 %; Nucleated Red Blood Cells 0.6 /100 WBC (0); Platelet Count 139 K/mcL (140-400); Red Blood Count 2.58 M/mcL (4.19-5.50); Red Cell Distribution Width 18.5 % (11.5-14.5); Segmented Neutrophils % 87.4 %; White Blood Count 3.6 K/mcL (4.3-11.1)
[2021-07-22 05:13] LABS: Neutrophils # 3.2 K/mcL (1.6-8.9)
[2021-07-22 05:17] LABS: Calcium 9.3 mg/dL (8.6-10.3); Potassium 4.6 mEq/L (3.5-5.1)
[2021-07-22] MEDS: Budesonide/Formoterol 160/4.5 1 PUFF INH IH SCH ×2 (07:47→19:47)
[2021-07-22] MEDS: Insulin LISPRO 300 UNITS/3 ML VIAL SUBQ SCH ×4 (08:01→20:50)
[2021-07-22] MEDS: MethylPREDNISolone 40 MG/ML VIAL IVP SCH ×2 (08:07→16:44)
[2021-07-22] MEDS: Metoprolol XL (24 HR) Succ 25 MG TAB.ER.24H PO SCH (08:08)
[2021-07-22] MEDS: Aspirin 81 MG TAB.CHEW PO SCH (08:08)
[2021-07-22] MEDS ORDERED: 0.9 % Sodium Chloride 250 ML IVC PRN (10:08)
[2021-07-22] MEDS ORDERED: *HR* Heparin 10,000 UNIT/10 ML VIAL IV PRN (10:08)
[2021-07-23] MEDS: Ipratropium/Albuterol Neb 3 ML IH SCH ×6 (00:03→20:07)
[2021-07-23] MEDS: MethylPREDNISolone 40 MG/ML VIAL IVP SCH ×2 (00:56→09:03)
[2021-07-23 05:15] LABS: Hematocrit 25.6 % (37.5-50.1); Hemoglobin 7.7 g/dL (12.9-16.9); Immature Granulocytes % 0.5 % (0-4); Immature Platelets 9.1 % (1.1-6.1); Lymphocytes # 0.1 K/mcL (0.6-4.6); Lymphocytes % 2.5 %; Mean Corpuscular HGB Conc 30.1 g/dL (31.6-35.5); Mean Corpuscular Hemoglobin 29.1 pg (28.0-33.3); Mean Corpuscular Volume 96.6 fL (83.0-100.0); Mean Platelet Volume 10.7 fL (9.4-12.4); Monocytes # 0.2 K/mcL (0.0-1.3); Monocytes % 5.1 %; Neutrophils # 3.8 K/mcL (1.6-8.9); Nucleated Red Blood Cells 0.5 /100 WBC (0); Platelet Count 109 K/mcL (140-400); Red Blood Count 2.65 M/mcL (4.19-5.50); Red Cell Distribution Width 19.1 % (11.5-14.5); Segmented Neutrophils % 91.9 %; White Blood Count 4.1 K/mcL (4.3-11.1)
[2021-07-23 05:22] LABS: Potassium 3.8 mEq/L (3.5-5.1)
[2021-07-23] MEDS: Budesonide/Formoterol 160/4.5 1 PUFF INH IH SCH ×2 (07:34→20:08)
[2021-07-23] MEDS: Insulin LISPRO 300 UNITS/3 ML VIAL SUBQ SCH ×4 (09:03→21:58)
[2021-07-23] MEDS: Metoprolol XL (24 HR) Succ 25 MG TAB.ER.24H PO SCH (09:03)
[2021-07-23] MEDS: Aspirin 81 MG TAB.CHEW PO SCH (09:03)
[2021-07-23] MEDS: Acetaminophen 325 MG TABLET PO PRN ×2 (11:47→21:36)
[2021-07-23] MEDS ORDERED: *HR* HYDROcodone/Acet 7.5/325 mg TABLET PO PRN (21:20)
[2021-07-24 03:47] LABS: Hemoglobin 7.6 g/dL (12.9-16.9); Immature Granulocytes % 0.5 % (0-4); Lymphocytes # 0.2 K/mcL (0.6-4.6); Lymphocytes % 4.2 %; Mean Corpuscular HGB Conc 30.4 g/dL (31.6-35.5); Mean Corpuscular Hemoglobin 29.8 pg (28.0-33.3); Mean Platelet Volume 10.8 fL (9.4-12.4); Monocytes # 0.3 K/mcL (0.0-1.3); Monocytes % 7.3 %; Neutrophils # 3.7 K/mcL (1.6-8.9); Platelet Count 102 K/mcL (140-400); Red Blood Count 2.55 M/mcL (4.19-5.50); White Blood Count 4.2 K/mcL (4.3-11.1)
[2021-07-24] MEDS: Ipratropium/Albuterol Neb 3 ML IH SCH ×7 (03:47→23:04)
[2021-07-24 03:56] LABS: Calcium 9.1 mg/dL (8.6-10.3)
[2021-07-24] MEDS: Budesonide/Formoterol 160/4.5 1 PUFF INH IH SCH ×2 (07:29→19:56)
[2021-07-24] MEDS: Insulin LISPRO 300 UNITS/3 ML VIAL SUBQ SCH ×4 (07:31→21:41)
[2021-07-24] MEDS: Metoprolol XL (24 HR) Succ 25 MG TAB.ER.24H PO SCH (07:40)
[2021-07-24] MEDS: predniSONE 20 MG TABLET PO SCH (07:40)
[2021-07-24] MEDS: Aspirin 81 MG TAB.CHEW PO SCH (07:43)
[2021-07-24] MEDS ORDERED: *HR* Heparin 10,000 UNIT/10 ML VIAL IV PRN ×2 (09:05)
[2021-07-24] MEDS ORDERED: 0.9 % Sodium Chloride 250 ML IVC PRN (09:05)
[2021-07-24] MEDS ORDERED: E-Z-PAQUE (BARIUM SULF) SUSP 1 BOTTLE PO ONE (15:09)
[2021-07-24] MEDS ORDERED: E-Z-HD (BARIUM SULF) SUSPENSION PO ONE (15:09)
[2021-07-24] MEDS ORDERED: Acetaminophen 325 MG TABLET PO PRN (15:20)
[2021-07-24] MEDS: *HR* HYDROcodone/Acet 7.5/325 mg TABLET PO PRN (19:50)
[2021-07-25] MEDS: Ipratropium/Albuterol Neb 3 ML IH SCH ×4 (03:38→15:47)
[2021-07-25 04:23] LABS: Hematocrit 25.7 % (37.5-50.1); Hemoglobin 7.7 g/dL (12.9-16.9); Immature Platelets 7.1 % (1.1-6.1); Mean Corpuscular Hemoglobin 29.8 pg (28.0-33.3); Mean Corpuscular Volume 99.6 fL (83.0-100.0); Mean Platelet Volume 10.3 fL (9.4-12.4); Red Blood Count 2.58 M/mcL (4.19-5.50); Red Cell Distribution Width 19.4 % (11.5-14.5); White Blood Count 4.6 K/mcL (4.3-11.1)
[2021-07-25 04:37] LABS: Albumin 3.3 g/dL (3.5-5.7); Albumin/Globulin Ratio 1.1 (1.1-2.2); Bilirubin,Total 1.4 mg/dL (0.3-1.0); Calcium 9.2 mg/dL (8.6-10.3); Potassium 3.6 mEq/L (3.5-5.1); Total Protein 6.3 g/dL (6.4-8.9)
[2021-07-25] MEDS: *HR* HYDROcodone/Acet 7.5/325 mg TABLET PO PRN (06:59)
[2021-07-25] MEDS: Budesonide/Formoterol 160/4.5 1 PUFF INH IH SCH (07:24)
[2021-07-25] MEDS: Aspirin 81 MG TAB.CHEW PO SCH (07:53)
[2021-07-25] MEDS: predniSONE 20 MG TABLET PO SCH (07:53)
[2021-07-25] MEDS: Metoprolol XL (24 HR) Succ 25 MG TAB.ER.24H PO SCH (07:54)
[2021-07-25] MEDS: Insulin LISPRO 300 UNITS/3 ML VIAL SUBQ SCH ×3 (07:55→17:10)
[2021-07-25 15:39] VITALS: BP 146/55; PULSE 112; TEMP 98.2; O2SAT 96
[2021-07-25 16:06] LABS: Adenovirus Not Detected (Not Detect); Coronavirus 229E Not Detected (Not Detect); Coronavirus HKU1 Not Detected (Not Detect); Coronavirus NL63 Not Detected (Not Detect); Coronavirus OC43 Not Detected (Not Detect); Human Metapneumovirus Not Detected (Not Detect); SARS-CoV-2 Not Detected (Not Detect)
[2021-07-25 16:07] LABS: Bordetella Pertussis Not Detected (Not Detect); Chlamydophila pneumoniae Not Detected (Not Detect); Human Rhinovirus/Enterovirus Not Detected (Not Detect); Influenza A Subtype 2009 H1 Not Detected (Not Detect); Influenza B Not Detected (Not Detect); Mycoplasma pneumoniae Not Detected (Not Detect); Parainfluenza Virus 1 Not Detected (Not Detect); Parainfluenza Virus 2 Not Detected (Not Detect); Parainfluenza Virus 3 Not Detected (Not Detect); Parainfluenza Virus 4 Not Detected (Not Detect); Respiratory Syncytial Virus Not Detected (Not Detect)
== END 2021-07-25 18:20 | DRG 208 ==
LOC: 3NENU → SUATTDRO 23:38 → ICNU 07-06 16:13 → 2ANU 07-11 16:33 → 2NENU 07-19 19:18
PROVIDERS: ADMIT Internal Medicine; ATTEND General Practice
PROC: IRPERMA (2021-07-17 12:00)